=== PATIENT | male | born 1950 | race Caucasian/White ===

== ENCOUNTER 2018-02-26 21:02 | Inpatient (IN) ==
[2018-02-26 21:49] LABS: Bilirubin,Urine Negative (Negative); Blood,Urine Negative (Negative); Clarity,Urine Clear (Clear); Color,Urine Yellow (Yellow); Glucose,Urine (UA) Normal (Normal); Ketones,Urine Negative (Negative); Leukocyte Esterase,Urine Negative (Negative); Nitrite,Urine Negative (Negative); Protein,Urine Negative (Neg-Trace); Specific Gravity,Urine 1.011 (1.010-1.025); Urobilinogen,Urine Normal (Normal)
[2018-02-26 21:57] LABS: Amphetamine Screen,Urine Negative ng/mL (Cutoff=1000); Barbiturate Screen,Urine Negative ng/mL (Cutoff=200); Benzodiazepines Screen,Urine Negative ng/mL (Cutoff=200); Cannabinoid Screen,Urine Negative ng/mL (Cutoff = 50); Cocaine Screen,Urine Negative ng/mL (Cutoff= 300); Opiate Screen,Urine Negative ng/mL (Cutoff=300); Phencyclidine Screen,Urine Negative ng/mL (Cutoff=25)
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
[2018-02-26 22:17] LABS: Basophils % 0.4 %; Eosinophils # 0.2 K/mcL (0.0-0.6); Eosinophils % 2.3 %; Hematocrit 43.2 % (37.5-50.1); Hemoglobin 14.7 g/dL (12.9-16.9); Immature Granulocytes % 0.8 % (0-4); Lymphocytes # 1.8 K/mcL (0.6-4.6); Lymphocytes % 24.5 %; Mean Corpuscular Hemoglobin 29.6 pg (28.0-33.3); Mean Corpuscular Volume 86.9 fL (83.0-100.0); Mean Platelet Volume 10.5 fL (9.4-12.4); Monocytes # 0.6 K/mcL (0.0-1.3); Monocytes % 8.7 %; Neutrophils # 4.7 K/mcL (1.6-8.9); Platelet Count 175 K/mcL (140-400); Red Blood Count 4.97 M/mcL (4.19-5.50); Red Cell Distribution Width 13.5 % (11.5-14.5); Segmented Neutrophils % 63.3 %
[2018-02-26 22:37] LABS: Acetaminophen < 10 mcg/mL (10-20); BUN/Creatinine Ratio 11 (6-26); Blood Urea Nitrogen 10 mg/dL (8-23); Calcium 9.3 mg/dL (8.6-10.3); Carbon Dioxide 21 mEq/L (23-29); Chloride 106 mEq/L (98-107); Ethanol 50 mg/dL (Less than 10); Glucose 88 mg/dL (70-105); Osmolality,Calculated 286 (280-300); Potassium 3.7 mEq/L (3.5-5.1); Salicylate < 2.5 mg/dL (15.0-30.0); Sodium 139 mEq/L (136-145); eGFR For African Americans > 60 (> 60); eGFR For Non-African Americans > 60 (> 60)
[2018-02-27] MEDS ORDERED: Doxycycline 100 MG CAPSULE PO ONE (00:14)
[2018-02-27] MEDS ORDERED: Haloperidol Lactate 5 MG/ML VIAL IM PRN (00:46)
[2018-02-27] MEDS ORDERED: hydrOXYzine pamoate 25 MG CAPSULE PO PRN (00:46)
[2018-02-27] MEDS ORDERED: *HR* LORazepam 2 MG/ML VIAL IM PRN (00:46)
[2018-02-27] MEDS ORDERED: *HR* LORazepam 1 MG TABLET PO PRN (00:46)
[2018-02-27] MEDS ORDERED: Mag Hydrox/Al Hydrox/Simeth 30 ML UDC PO PRN (00:46)
[2018-02-27] MEDS ORDERED: MOM Conc 10 ML UD.LIQ PO PRN (00:46)
[2018-02-27] MEDS ORDERED: Ibuprofen 400 MG TABLET PO PRN (00:46)
[2018-02-27] MEDS: Thiamine (B-1) 100 MG TABLET PO SCH (11:19)
[2018-02-27] MEDS: Folic Acid 1 MG TABLET PO SCH (11:19)
[2018-02-27] MEDS: Vitamin B Complex/Vit C/Vit E 1 EACH TABLET PO SCH (11:19)
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
[2018-02-27 11:22] LABS: Albumin 4.1 g/dL (3.5-5.7); Albumin/Globulin Ratio 1.6 (1.1-2.2); Bilirubin,Direct 0.1 mg/dL (0.0-0.2); Bilirubin,Indirect 0.4 mg/dL (0.0-1.2); Bilirubin,Total 0.5 mg/dL (0.3-1.0); Globulin 2.6 g/dL (2.4-3.5); Total Protein 6.7 g/dL (6.4-8.9)
[2018-02-28] MEDS: Vitamin B Complex/Vit C/Vit E 1 EACH TABLET PO SCH (09:45)
[2018-02-28] MEDS: Thiamine (B-1) 100 MG TABLET PO SCH (09:45)
[2018-02-28] MEDS: Folic Acid 1 MG TABLET PO SCH (09:45)
--- NOTE | 2018-02-28 12:25 | Psychiatry Progress Note ---
Date of Encounter: 02/28/18 Time of Encounter: 10:45 Subjective Interval history: Identifying data: Mr. Mason is a 67 year old male, single, homeless, on SSI, with unclear primary psych diagnosis, h/o alcohol use disorder, h/o of one inpatient hospitalization 11yrs ago, denied h/o illict drug use, denied h/o violence/ incarceration, no significant medical hx who self presented to the ED on accounr of having suicidal thoughts with a plan to cut his wrist in the setting of ongoing stressors identified as the loss of his mom 5moths ago and ongoing family issues. Patient was subsequently transferred to for inpatient stabilization. Interval Hx: There were no reported behavioral issues or incident overnight. Patient was seen this mroning in his room. He reported doing ok and slept better. Patient still endorses Si and when he was asked of any specific plan, he stated "Just give me and knife and I will do it.". Patient proceeded to inquire about his social security check wanting to know if he will receive it whiles still in [facility]. He denied any depressive or anxiety symptoms. He is compliant with hi medications and denied any side effects. On review of symptoms, he denied any mood or psychotic symptoms including AH/VH/SI/HI. Review of Systems Constitutional: Denies: fever, chills, weakness, weight change Eyes: Denies: eye pain, vision change Ears, Nose, Throat: Denies: ear pain, throat pain, dental pain, hearing loss, congestion Cardiovascular: Denies: chest pain, palpitations, dyspnea on exertion Respiratory: Denies: cough, dyspnea, wheezes Gastrointestinal: Denies: abdominal pain, nausea, vomiting, diarrhea, constipation Musculoskeletal: Denies: joint swelling, joint pain Neurological: Denies: headache, weakness, numbness, memory loss Psychiatric: Reports: abnormal sleep pattern, change in appetite Results - Vital Signs Vital Signs: Temp Pulse Resp BP Pulse Ox 98.5 F 70 18 158/107 99 02/27/18 20:03 02/27/18 20:03 02/27/18 20:03 02/27/18 20:03 02/27/18 00:45 Assessment and Plan (1) Adjustment disorder Current visit: Yes Status: Acute (2) Suicidal ideation Current visit: Yes Status: Acute Consult Discharge Plan - Plan Referrals: NONE,PCP [Primary Care Provider] - Psychiatry Exam - Constitutional Vitals: Temp Pulse Resp BP Pulse Ox 98.5 F 70 18 158/107 99 02/27/18 20:03 02/27/18 20:03 02/27/18 20:03 02/27/18 20:03 02/27/18 00:45 General appearance: age & developmentally appropriate, well-groomed, well- nourished - Musculoskeletal Gait: normal Station: relaxed Strength & Tone: normal for patient - Psychiatric Patient Orientation: Yes Person, Yes Time, Yes Place Level of alertness: Alert Behavior: calm, cooperative Psychomotor activity: Normal Eye Contact: Maintains Eye Contact Mood Description: Euthymic/stable Affect description: congruent with mood, full range Speech Volume: Normal Speech pattern: normal rate, normal rhythm, normal tone, fluent, spontaneous Language & Vocabulary: consistent with education Thought Process: Linear, Goal Oriented Thought Content: Yes Suicidal ideation, No Homicidal ideation, No Overt delusions Perceptual Disturbances: No Auditory hallucinations, No Visual hallucinations Attention Span Ability: Capable of Focused Attention Memory Description: Grossly Intact Patient Reliability: Questionable Historian Fund of knowledge: Yes below average Intelligence Estimate: Below Average Judgment: Poor Insight: Minimal
[2018-02-28] MEDS ORDERED: Mirtazapine 15 MG TABLET PO SCH (21:00)
[2018-02-28] MEDS: Doxycycline 100 MG CAPSULE PO SCH (22:39)
[2018-02-28] MEDS: Mirtazapine 15 MG TABLET PO SCH (23:35)
[2018-03-01] MEDS: Vitamin B Complex/Vit C/Vit E 1 EACH TABLET PO SCH (08:35)
[2018-03-01] MEDS: Doxycycline 100 MG CAPSULE PO SCH ×2 (08:35→22:56)
[2018-03-01] MEDS: Thiamine (B-1) 100 MG TABLET PO SCH (08:36)
[2018-03-01] MEDS: Folic Acid 1 MG TABLET PO SCH (08:36)
--- NOTE | 2018-03-01 15:00 | Psychiatry Progress Note ---
Date of Encounter: 03/01/18 Time of Encounter: 14:57 Subjective Interval history: Patient seen for follow-up. Case discussed with nursing staff. Patient is very vague and unable to answer questions or explain why he is in the hospital. He stated "" my mother . Has no place to live. he continued to endorse suicidal ideation with a plan to cut himself was a knife. Tell me that he has been on disability almost all his life in [place]. Speech is mumbled and unclear. Concerned about his housing issue. Unable to provide history information. Review of Systems Psychiatric: Reports: abnormal sleep pattern, suicidal ideation, change in appetite Results - Vital Signs Vital Signs: Temp Pulse Resp BP Pulse Ox 98.1 F 74 14 130/77 99 03/01/18 09:00 03/01/18 09:00 03/01/18 09:00 03/01/18 09:00 02/27/18 00:45 Consult Discharge Plan - Plan Referrals: NONE,PCP [Primary Care Provider] - Psychiatry Exam - Constitutional Vitals: Temp Pulse Resp BP Pulse Ox 98.1 F 74 14 130/77 99 03/01/18 09:00 03/01/18 09:00 03/01/18 09:00 03/01/18 09:00 02/27/18 00:45 General appearance: age & developmentally appropriate, well-nourished, unkempt, bizarre - Musculoskeletal Gait: normal Station: relaxed Strength & Tone: normal for patient - Psychiatric Patient Orientation: Yes Person, Yes Time, Yes Place Level of alertness: Alert Behavior: calm, cooperative, guarded, withdrawn Psychomotor activity: Slowed Eye Contact: Minimal Contact Mood Description: Euthymic/stable Affect description: congruent with mood, constricted, dysphoric Speech Volume: Normal, Whispering Speech pattern: normal rate, normal rhythm, normal tone, fluent, spontaneous, repetetive, impoverished, mumbled Language & Vocabulary: consistent with education Thought Process: Thought Blocking, Perseveration, [place], Slowed Thinking Thought Content: Yes Suicidal ideation, No Homicidal ideation, No Overt delusions Perceptual Disturbances: No Auditory hallucinations, No Visual hallucinations Attention Span Ability: Unable to Focus Memory Description: Immediate Impaired, Recent Impaired, Remote Impaired Patient Reliability: Not Reliable Historian Fund of knowledge: Yes abstraction ability, Yes below average, Yes aware of current events Intelligence Estimate: Average Judgment: Limited Insight: Partial
[2018-03-01] MEDS: Mirtazapine 15 MG TABLET PO SCH (22:55)
[2018-03-02] MEDS: Thiamine (B-1) 100 MG TABLET PO SCH (09:30)
[2018-03-02] MEDS: Vitamin B Complex/Vit C/Vit E 1 EACH TABLET PO SCH (09:30)
[2018-03-02] MEDS: Doxycycline 100 MG CAPSULE PO SCH ×2 (09:30→21:05)
[2018-03-02] MEDS: Folic Acid 1 MG TABLET PO SCH (09:30)
--- NOTE | 2018-03-02 15:19 | Psychiatry Progress Note ---
Date of Encounter: 03/02/18 Time of Encounter: 15:19 Subjective Interval history: Staff report patient continued to make suicidal statements. He is intellectually limited. tankroom worker is trying to find appropriate discharge plan. Otherwise he is medication compliant, seclusive to his room for most of the time. No problem with sleep or appetite. No behavioral agitation. Review of Systems Psychiatric: Reports: abnormal sleep pattern, suicidal ideation, change in appetite Results - Vital Signs Vital Signs: Temp Pulse Resp BP Pulse Ox 98.1 F 77 14 122/86 99 03/02/18 09:00 03/02/18 09:00 03/02/18 09:00 03/02/18 09:00 02/27/18 00:45 Assessment and Plan (1) Suicidal ideation Current visit: Yes Status: Acute Plan: Continue hospitalization, Close observation, Suicide Precautions per unit protocol, Encourage participation in unit milieu, Group Therapy, Monitor sleep, Monitor appetite Risks, benefits, side effects, alternatives discussed w/pt: Yes Patient agreeable to treatment: Yes Consult Discharge Plan - Plan Referrals: NONE,PCP [Primary Care Provider] - Psychiatry Exam - Constitutional Vitals: Temp Pulse Resp BP Pulse Ox 98.1 F 77 14 122/86 99 03/02/18 09:00 03/02/18 09:00 03/02/18 09:00 03/02/18 09:00 02/27/18 00:45 General appearance: age & developmentally appropriate, well-nourished, unkempt, disheveled, bizarre - Musculoskeletal Gait: normal, slow Station: relaxed Strength & Tone: normal for patient - Psychiatric Patient Orientation: Yes Person, Yes Time, Yes Place Level of alertness: Alert Behavior: calm, cooperative Psychomotor activity: Normal Eye Contact: Fleeting Contact Mood Description: Euthymic/stable, Depressed Affect description: congruent with mood, constricted Speech Volume: Normal Speech pattern: normal rate, normal rhythm, normal tone, fluent, spontaneous, disorganized, limited, repetetive Language & Vocabulary: consistent with education Thought Process: Linear, Goal Oriented Thought Content: No Suicidal ideation, No Homicidal ideation, No Overt delusions Perceptual Disturbances: No Auditory hallucinations, No Visual hallucinations Attention Span Ability: Unable to Focus Memory Description: Grossly Intact Patient Reliability: Questionable Historian Fund of knowledge: Yes abstraction ability, Yes aware of current events Intelligence Estimate: Average Judgment: Limited Insight: Partial
[2018-03-02] MEDS: Mirtazapine 15 MG TABLET PO SCH (21:06)
[2018-03-03] MEDS: Doxycycline 100 MG CAPSULE PO SCH ×2 (09:45→21:03)
[2018-03-03] MEDS: Folic Acid 1 MG TABLET PO SCH (09:45)
[2018-03-03] MEDS: Thiamine (B-1) 100 MG TABLET PO SCH (09:45)
[2018-03-03] MEDS: Vitamin B Complex/Vit C/Vit E 1 EACH TABLET PO SCH (09:46)
--- NOTE | 2018-03-03 15:11 | Psychiatry Progress Note ---
Date of Encounter: 03/03/18 Time of Encounter: 15:08 Subjective Interval history: Patient seen for follow-up. Case discussed was treatment team. Staff report patient is spending most his time in his room seclusive and occasionally attend 1 or 2 groups. No report of any behavioral agitation. Denies sleep or appetite problems. Continued to endorse suicidal ideation by cutting himself with a knife. sill worker is trying to work with him to get housing. He has no family in this area. And he is interested and living by himself. Limited conversation due to intellectual level. 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 Affect is flat. Review of Systems Psychiatric: Reports: abnormal sleep pattern, suicidal ideation, change in appetite Results - Vital Signs Vital Signs: Temp Pulse Resp BP Pulse Ox 97.9 F 67 18 136/90 99 03/03/18 08:21 03/03/18 08:21 03/03/18 08:21 03/03/18 08:21 02/27/18 00:45 Assessment and Plan (1) Suicidal ideation Current visit: Yes Status: Acute Plan: Continue hospitalization, Close observation, Suicide Precautions per unit protocol, Encourage participation in unit milieu, Group Therapy, Monitor sleep, Monitor appetite Risks, benefits, side effects, alternatives discussed w/pt: Yes Patient agreeable to treatment: Yes Consult Discharge Plan - Plan Referrals: NONE,PCP [Primary Care Provider] - Psychiatry Exam - Constitutional Vitals: Temp Pulse Resp BP Pulse Ox 97.9 F 67 18 136/90 99 03/03/18 08:21 03/03/18 08:21 03/03/18 08:21 03/03/18 08:21 02/27/18 00:45 General appearance: age & developmentally appropriate, well-groomed, well- nourished - Musculoskeletal Gait: normal, slow Station: relaxed Strength & Tone: normal for patient - Psychiatric Patient Orientation: Yes Person, Yes Time, Yes Place Level of alertness: Alert Behavior: calm, cooperative, guarded Psychomotor activity: Slowed Eye Contact: Maintains Eye Contact Mood Description: Euthymic/stable, Depressed Affect description: congruent with mood, constricted Speech Volume: Normal Speech pattern: normal rate, normal rhythm, normal tone, fluent, spontaneous Language & Vocabulary: consistent with education Thought Process: Linear, Goal Oriented Thought Content: Yes Suicidal ideation, No Homicidal ideation, No Overt delusions Perceptual Disturbances: No Auditory hallucinations, No Visual hallucinations Attention Span Ability: Capable of Focused Attention Memory Description: Grossly Intact Patient Reliability: Reliable Historian Fund of knowledge: Yes abstraction ability, Yes aware of current events Intelligence Estimate: Average Judgment: Limited Insight: Partial
[2018-03-03] MEDS: Mirtazapine 15 MG TABLET PO SCH (21:03)
[2018-03-04] MEDS: Folic Acid 1 MG TABLET PO SCH (08:41)
[2018-03-04] MEDS: Thiamine (B-1) 100 MG TABLET PO SCH (08:41)
[2018-03-04] MEDS: Vitamin B Complex/Vit C/Vit E 1 EACH TABLET PO SCH (08:41)
[2018-03-04] MEDS: Doxycycline 100 MG CAPSULE PO SCH ×2 (08:42→20:21)
[2018-03-04] MEDS ORDERED: Neosporin OINT 15 GM TUBE TP PRN (12:50)
--- NOTE | 2018-03-04 13:51 | Psychiatry Progress Note ---
Date of Encounter: 03/04/18 Time of Encounter: 13:45 Subjective Interval history: patient seen for follow-up. Case discussed with treatment team. sanitation worker indicated that patient may be placed next week. Patient is medication compliant. No behavioral agitation. Limited communication. Makes his needs know Review of Systems Psychiatric: Reports: abnormal sleep pattern, suicidal ideation, change in appetite Results - Vital Signs Vital Signs: Temp Pulse Resp BP Pulse Ox 97.6 F 74 18 146/93 99 03/04/18 09:00 03/04/18 09:00 03/04/18 09:00 03/04/18 09:00 02/27/18 00:45 Assessment and Plan (1) Suicidal ideation Current visit: Yes Status: Acute Plan: Continue hospitalization, Close observation, Suicide Precautions per unit protocol, Encourage participation in unit milieu, Group Therapy, Monitor sleep, Monitor appetite Risks, benefits, side effects, alternatives discussed w/pt: Yes Patient agreeable to treatment: Yes (2) Major depressive disorder, recurrent, unspecified Current visit: Yes Status: Acute Plan: Continue hospitalization, Close observation, Suicide Precautions per unit protocol, Encourage participation in unit milieu, Group Therapy, Monitor sleep, Monitor appetite Risks, benefits, side effects, alternatives discussed w/pt: Yes Patient agreeable to treatment: Yes Qualifiers: Qualified Code(s): F33.9 - Major depressive disorder, recurrent, unspecified Consult Discharge Plan - Plan Referrals: NONE,PCP [Primary Care Provider] - Psychiatry Exam - Constitutional Vitals: Temp Pulse Resp BP Pulse Ox 97.6 F 74 18 146/93 99 03/04/18 09:00 03/04/18 09:00 03/04/18 09:00 03/04/18 09:00 02/27/18 00:45 General appearance: age & developmentally appropriate, well-groomed, well- nourished, bizarre - Musculoskeletal Gait: normal Station: relaxed Strength & Tone: normal for patient - Psychiatric Patient Orientation: Yes Person, Yes Time, Yes Place Level of alertness: Alert Behavior: calm, cooperative Psychomotor activity: Normal Eye Contact: Maintains Eye Contact Mood Description: Euthymic/stable Affect description: congruent with mood, full range Speech Volume: Normal Speech pattern: normal rate, normal rhythm, normal tone, fluent, spontaneous, limited, impoverished Language & Vocabulary: consistent with education Thought Process: Linear, Goal Oriented Thought Content: Yes Suicidal ideation, No Homicidal ideation, No Overt delusions Perceptual Disturbances: No Auditory hallucinations, No Visual hallucinations Attention Span Ability: Capable of Focused Attention Memory Description: Grossly Intact Patient Reliability: Reliable Historian Fund of knowledge: Yes abstraction ability, Yes aware of current events Intelligence Estimate: Average Judgment: Limited Insight: Partial
[2018-03-04] MEDS: Mirtazapine 15 MG TABLET PO SCH (20:21)
[2018-03-04] MEDS: traZODone 50 MG TABLET PO PRN (20:21)
[2018-03-05] MEDS: Thiamine (B-1) 100 MG TABLET PO SCH (10:24)
[2018-03-05] MEDS: Vitamin B Complex/Vit C/Vit E 1 EACH TABLET PO SCH (10:24)
[2018-03-05] MEDS: Folic Acid 1 MG TABLET PO SCH (10:25)
[2018-03-05] MEDS: Doxycycline 100 MG CAPSULE PO SCH ×2 (10:25→20:56)
--- NOTE | 2018-03-05 15:37 | Psychiatry Progress Note ---
Date of Encounter: 03/05/18 Time of Encounter: 15:05 Subjective Interval history: Patient could not be seen because he was sleeping. Staff report she is medication compliant, seclusive to his room most of the time, cooperative with staff. He denies suicidal ideation and forward to possible discharge next week. rigging up worker is planning is placement. No behavioral agitation or lethargy. Awaiting placement. Review of Systems Psychiatric: Reports: abnormal sleep pattern, suicidal ideation, change in appetite Results - Vital Signs Vital Signs: Temp Pulse Resp BP Pulse Ox 97.7 F 16 83 142/93 99 03/05/18 09:00 03/05/18 09:00 03/05/18 09:00 03/05/18 09:00 02/27/18 00:45 Assessment and Plan (1) Suicidal ideation Current visit: Yes Status: Acute Plan: Continue hospitalization, Close observation, Suicide Precautions per unit protocol, Encourage participation in unit milieu, Group Therapy, Monitor sleep, Monitor appetite Risks, benefits, side effects, alternatives discussed w/pt: Yes Patient agreeable to treatment: Yes (2) Major depressive disorder, recurrent, unspecified Current visit: Yes Status: Acute Plan: Continue hospitalization, Close observation, Suicide Precautions per unit protocol, Encourage participation in unit milieu, Group Therapy, Monitor sleep, Monitor appetite Risks, benefits, side effects, alternatives discussed w/pt: Yes Patient agreeable to treatment: Yes Qualifiers: Qualified Code(s): F33.9 - Major depressive disorder, recurrent, unspecified Consult Discharge Plan - Plan Referrals: [place], Mental Health [Other] (You will see Dr. Santo for psychiatric medication management and [facility] for case management services in the senior care on discharge from the hospital.) Lm Becerra MD [Partnered Physician] - (You will see Dr. Becerra for primary care services in the senior care on discharge from the hospital.) Psychiatry Exam - Constitutional Vitals: Temp Pulse Resp BP Pulse Ox 97.7 F 16 83 142/93 99 03/05/18 09:00 03/05/18 09:00 03/05/18 09:00 03/05/18 09:00 02/27/18 00:45 General appearance: age & developmentally appropriate, well-nourished, unkempt - Musculoskeletal Gait: normal Station: relaxed Strength & Tone: normal for patient - Psychiatric Patient Orientation: Yes Person, Yes Time, Yes Place Level of alertness: Alert Behavior: calm, cooperative Psychomotor activity: Normal Eye Contact: Maintains Eye Contact Mood Description: Euthymic/stable Affect description: congruent with mood, full range Speech Volume: Normal Speech pattern: normal rate, normal rhythm, normal tone, fluent, spontaneous, limited, impoverished Language & Vocabulary: consistent with education Thought Process: Linear, Goal Oriented, [place] Thought Content: No Suicidal ideation, No Homicidal ideation, No Overt delusions Perceptual Disturbances: No Auditory hallucinations, No Visual hallucinations Attention Span Ability: Capable of Focused Attention Memory Description: Grossly Intact Patient Reliability: Reliable Historian Fund of knowledge: Yes abstraction ability, Yes aware of current events Intelligence Estimate: Average Judgment: Limited Insight: Partial
[2018-03-05] MEDS: Mirtazapine 15 MG TABLET PO SCH (20:56)
[2018-03-05] MEDS: traZODone 50 MG TABLET PO PRN (20:57)
[2018-03-06] MEDS: Doxycycline 100 MG CAPSULE PO SCH ×2 (10:04→21:56)
[2018-03-06] MEDS: Thiamine (B-1) 100 MG TABLET PO SCH (10:05)
[2018-03-06] MEDS: Folic Acid 1 MG TABLET PO SCH (10:05)
[2018-03-06] MEDS: Vitamin B Complex/Vit C/Vit E 1 EACH TABLET PO SCH (10:05)
--- NOTE | 2018-03-06 13:53 | Psychiatry Progress Note ---
Date of Encounter: 03/06/18 Time of Encounter: 13:50 Subjective Interval history: Patient seen for follow-up. Case discussed with nursing staff. Patient is doing well, denies any problem with sleep or appetite, denies suicidal ideation , he participated in groups and activities. She cooperative and compliant with medication. Awaiting placement next week. Review of Systems Psychiatric: Reports: abnormal sleep pattern, suicidal ideation, change in appetite Results - Vital Signs Vital Signs: Temp Pulse Resp BP Pulse Ox 97.6 F 74 14 138/91 99 03/06/18 09:00 03/06/18 09:00 03/06/18 09:00 03/06/18 09:00 02/27/18 00:45 Assessment and Plan (1) Suicidal ideation Current visit: Yes Status: Acute Plan: Continue hospitalization, Close observation, Suicide Precautions per unit protocol, Encourage participation in unit milieu, Group Therapy, Monitor sleep, Monitor appetite Risks, benefits, side effects, alternatives discussed w/pt: Yes Patient agreeable to treatment: Yes (2) Major depressive disorder, recurrent, unspecified Current visit: Yes Status: Acute Plan: Continue hospitalization, Close observation, Suicide Precautions per unit protocol, Encourage participation in unit milieu, Group Therapy, Monitor sleep, Monitor appetite Risks, benefits, side effects, alternatives discussed w/pt: Yes Patient agreeable to treatment: Yes Qualifiers: Qualified Code(s): F33.9 - Major depressive disorder, recurrent, unspecified Consult Discharge Plan - Plan Referrals: [place], Mental Health [Other] (You will see Dr. Santo for psychiatric medication management and [facility] for case management services in the [facility] on discharge from the hospital.) Lm Becerra MD [Partnered Physician] - (You will see Dr. Becerra for primary care services in the snf on discharge from the hospital.) Psychiatry Exam - Constitutional Vitals: Temp Pulse Resp BP Pulse Ox 97.6 F 74 14 138/91 99 03/06/18 09:00 03/06/18 09:00 03/06/18 09:00 03/06/18 09:00 02/27/18 00:45 General appearance: age & developmentally appropriate, well-groomed, well- nourished - Musculoskeletal Gait: normal Station: relaxed Strength & Tone: normal for patient - Psychiatric Patient Orientation: Yes Person, Yes Time, Yes Place Level of alertness: Alert Behavior: calm, cooperative Psychomotor activity: Normal Eye Contact: Maintains Eye Contact Mood Description: Euthymic/stable Affect description: congruent with mood, full range Speech Volume: Normal Speech pattern: normal rate, normal rhythm, normal tone, fluent, spontaneous, limited, impoverished Language & Vocabulary: consistent with education Thought Process: Linear, Goal Oriented Thought Content: No Suicidal ideation, No Homicidal ideation, No Overt delusions Perceptual Disturbances: No Auditory hallucinations, No Visual hallucinations Attention Span Ability: Capable of Focused Attention Memory Description: Grossly Intact Patient Reliability: Reliable Historian Fund of knowledge: Yes abstraction ability, Yes aware of current events Intelligence Estimate: Average Judgment: Limited Insight: Partial
[2018-03-06] MEDS: Mirtazapine 15 MG TABLET PO SCH (21:55)
[2018-03-06] MEDS: traZODone 50 MG TABLET PO PRN (21:56)
[2018-03-07] MEDS: Folic Acid 1 MG TABLET PO SCH (09:21)
[2018-03-07] MEDS: Doxycycline 100 MG CAPSULE PO SCH ×2 (09:21→20:57)
[2018-03-07] MEDS: Thiamine (B-1) 100 MG TABLET PO SCH (09:22)
[2018-03-07] MEDS: Vitamin B Complex/Vit C/Vit E 1 EACH TABLET PO SCH (09:22)
--- NOTE | 2018-03-07 13:42 | Psychiatry Progress Note ---
Date of Encounter: 03/07/18 Time of Encounter: 11:40 Subjective Interval history: Patient seen for follow-up. Case discussed with nursing staff. Staff report patient is pleasant and cooperative, compliant with medication and participate in some activities. Seen in the dining room dressed and groomed appropriately, pleasant and friendly limited conversation, denied any suicidal ideation. He is awaiting placement. Review of Systems Psychiatric: Reports: abnormal sleep pattern, suicidal ideation, change in appetite Results - Vital Signs Vital Signs: Temp Pulse Resp BP Pulse Ox 98.2 F 81 16 122/82 99 03/07/18 09:00 03/07/18 09:00 03/07/18 09:00 03/07/18 09:00 02/27/18 00:45 Assessment and Plan (1) Suicidal ideation Current visit: Yes Status: Acute Plan: Continue hospitalization, Close observation, Suicide Precautions per unit protocol, Encourage participation in unit milieu, Group Therapy, Monitor sleep, Monitor appetite Risks, benefits, side effects, alternatives discussed w/pt: Yes Patient agreeable to treatment: Yes (2) Major depressive disorder, recurrent, unspecified Current visit: Yes Status: Acute Plan: Continue hospitalization, Close observation, Suicide Precautions per unit protocol, Encourage participation in unit milieu, Group Therapy, Monitor sleep, Monitor appetite Risks, benefits, side effects, alternatives discussed w/pt: Yes Patient agreeable to treatment: Yes Qualifiers: Qualified Code(s): F33.9 - Major depressive disorder, recurrent, unspecified Consult Discharge Plan - Plan Referrals: [place], Mental Health [Other] (You will see Dr. Santo for psychiatric medication management and [facility] for case management services in the [facility] on discharge from the hospital.) Lm Becerra MD [Partnered Physician] - (You will see Dr. Becerra for primary care services in the [facility] on discharge from the hospital.) Psychiatry Exam - Constitutional Vitals: Temp Pulse Resp BP Pulse Ox 98.2 F 81 16 122/82 99 03/07/18 09:00 03/07/18 09:00 03/07/18 09:00 03/07/18 09:00 02/27/18 00:45 General appearance: age & developmentally appropriate, well-groomed, well- nourished, bizarre - Musculoskeletal Gait: normal Station: relaxed Strength & Tone: normal for patient - Psychiatric Patient Orientation: Yes Person, Yes Time, Yes Place Level of alertness: Alert Behavior: calm, cooperative Psychomotor activity: Normal Eye Contact: Maintains Eye Contact Mood Description: Euthymic/stable Affect description: congruent with mood, full range Speech Volume: Normal Speech pattern: normal rate, normal rhythm, normal tone, fluent, spontaneous Language & Vocabulary: consistent with education Thought Process: Linear, Goal Oriented Thought Content: No Suicidal ideation, No Homicidal ideation, No Overt delusions Perceptual Disturbances: No Auditory hallucinations, No Visual hallucinations Attention Span Ability: Capable of Focused Attention Memory Description: Grossly Intact Patient Reliability: Not Reliable Historian Fund of knowledge: Yes abstraction ability, Yes aware of current events Intelligence Estimate: Average Judgment: Limited Insight: Partial
[2018-03-07] MEDS: Mirtazapine 15 MG TABLET PO SCH (20:57)
[2018-03-07] MEDS: traZODone 50 MG TABLET PO PRN (20:57)
[2018-03-08] MEDS: Thiamine (B-1) 100 MG TABLET PO SCH (08:46)
[2018-03-08] MEDS: Folic Acid 1 MG TABLET PO SCH (08:46)
[2018-03-08] MEDS: Doxycycline 100 MG CAPSULE PO SCH (08:46)
[2018-03-08] MEDS: Vitamin B Complex/Vit C/Vit E 1 EACH TABLET PO SCH (08:46)
[2018-03-08 09:25] LABS: QuantiFERON Mitogen minus NIL >10.00 IU/mL
[2018-03-08 09:48] VITALS: BP 144/90
[2018-03-08 10:14] LABS: QuantiFERON NIL 0.03 IU/mL; QuantiFERON-TB Gold In-Tube NEGATIVE (Negative)
--- NOTE | 2018-03-08 10:46 | Discharge Summary ---
Date of Encounter: 03/08/18 Time of Encounter: 10:40 Diagnosis - Discharge Diagnosis (1) Depression Status: Acute Qualifiers: Depression Type: unspecified Qualified Code(s): F32.9 - Major depressive disorder, single episode, unspecified Medications - Discharge Medications Prescriptions: Doxycycline 100 mg PO BID 5 Days #10 capsule Folic Acid 1 mg PO DAILY 30 Days #30 tablet hydrOXYzine pamoate [HydrOXYzine Pamoate] 25 mg PO TID PRN 30 Days #30 capsule PRN Reason: Anxiety Mirtazapine [Remeron] 7.5 mg PO HS 30 Days #30 tablet Thiamine (B-1) [Vitamin B-1] 100 mg PO DAILY 30 Days #30 tablet Vitamin B Complex/Vit C/Vit E [Stresstab] 1 each PO DAILY 30 Days #30 tablet Aspirin Enteric Coated [Aspirin EC] 81 mg PO DAILY 04/29/16 [History] Febuxostat [Uloric] 80 mg PO DAILY 04/29/16 [History] Lisinopril [Zestril] 20 mg PO DAILY 02/27/18 [History] Doxycycline 100 mg PO BID 5 Days #10 capsule 03/08/18 [Rx] Folic Acid 1 mg PO DAILY 30 Days #30 tablet 03/08/18 [Rx] Mirtazapine [Remeron] 7.5 mg PO HS 30 Days #30 tablet 03/08/18 [Rx] Thiamine (B-1) [Vitamin B-1] 100 mg PO DAILY 30 Days #30 tablet 03/08/18 [Rx] Vitamin B Complex/Vit C/Vit E [Stresstab] 1 each PO DAILY 30 Days #30 tablet 01/20 [Rx] hydrOXYzine pamoate [HydrOXYzine Pamoate] 25 mg PO TID PRN 30 Days #30 capsule 03/08/18 [Rx] 3 Allergy/AdvReac Type Severity Reaction Status Date / Time Penicillins [PCN] Allergy Hives Verified 02/27/18 09:05 Results Procedures and tests throughout hospitalization: Completed Lab Orders Category Date Time Status Hepatic Panel Stat Lab 02/27/18 10:42 Completed QuantiFERON-TB Gold In-Tube Routine Lab 03/04/18 14:14 Completed Provider Date of admission: 02/27/18 00:38 Primary care physician: PCP NONE Psychiatry Exam - Constitutional Vitals: Temp Pulse Resp BP Pulse Ox 98.4 F 69 17 144/90 99 03/08/18 09:00 03/08/18 09:00 03/08/18 09:00 03/08/18 09:00 02/27/18 00:45 General appearance: age & developmentally appropriate - Musculoskeletal Gait: normal Station: other Strength & Tone: normal for patient - Psychiatric Patient Orientation: Yes Person, Yes Time, Yes Place, Yes Circumstance Level of alertness: Alert Behavior: calm Psychomotor activity: Normal Eye Contact: Diverts Contact Mood Description: Depressed (mild) Affect description: congruent with mood Speech Volume: Normal Speech pattern: normal rate, normal rhythm, normal tone Language & Vocabulary: consistent with education Thought Process: Intact Thought Content: Yes Intact Attention Span Ability: Capable of Focused Attention Memory Description: Grossly Intact Patient Reliability: Reliable Historian Fund of knowledge: Yes abstraction ability Intelligence Estimate: Average Judgment: Fair Insight: Partial Hospital Course Hospital course: Mr. Mason is a 67 year old male who was hospitalized for depression and having thoughts of wanting to hurt himself. He had been drinking alcohol again and was frustrated with his current living situation. He was feeling depressed at the thought of having to go back to the living environment that he came from. He was placed on folic acid and thiamine targeting his alcohol use. He was placed on Remeron for his depression and problems sleeping. He attended groups and utilized individual therapy. He worked with the professor of social work to find alternative housing for his discharge. He states he slowly started feeling better and was not feeling as depressed. He was feeling like he had more energy and was not as sad as he had been nor as hopeless. His sleep improved and had no issue with alcohol withdraw. He does know about 12 step program for outpatient cessation. He was working with the professor of social work and outpatient housing was located for his discharge, so he did not have to go back to living at the residence he was at before. He was happy, future oriented. He denied any adverse side effects of his medications. He stated he would stay on them and keep his outpatient follow up appointments that had been arranged for him. He denied SI/HI and his mood was stable. He was taking an antibiotic for a dog bite he sustained on his hand was knew he needed to conitnue taking it for another week yet. Time spent discussing smoking cessation with patient: 3 to 10 minutes Does patient wish to continue nicotine replacement upon disc: No (Patient no longer smokes) - Time Spent with Patient Total time spent providing and/or coordinating discharge services: 15 min Less than 30 minutes Assessment and Plan - Patient/Caregiver Discharge Instructions Activity: resume usual activities as tolerated Diet: regular diet - Follow up Plan Follow up with: [place], Mental [facility] [Other] (You will see Dr. Santo for psychiatric medication management and [facility] for case management services in the longterm on discharge from the hospital.) Lm Becerra MD [Partnered Physician] - (You will see Dr. Becerra for primary care services in the longterm on discharge from the hospital.) Functional capacity at discharge: independent ambulation Overall status at discharge: Stable Disposition: Transfer Other Quality - Multiple Antipsychotics Patient discharged on 2 or more antipsychotic medications: No Procedures - Procedures Procedures: Medication Management, Crisis Stabilization, Supportive Therapy
== END 2018-03-08 12:50 | disposition other institution (70) | DRG 881 ==
LOC: EMEROO 21:02 → 1ANU 02-27 00:38 → SUATTDRO 02-27 00:38 → 1ANU 02-27 01:15
PROVIDERS: ADMIT Psychiatry & Neurology Forensic Psychiatry; ATTEND Psychiatry & Neurology Psychiatry

== ENCOUNTER 2018-09-09 21:23 | Inpatient (IN) ==
--- NOTE | 2018-09-09 21:39 | Emergency Department Note ---
Disposition Clinical Impression: Suicidal ideation, Intoxication Disposition: Still a Patient Condition: Good Referrals: NONE,PCP [Primary Care Provider] - Forms: ED Satisfaction Letter Time of Disposition: 07:00 Psych HPI - General Chief Complaint: ED Psychiatric Symptoms Stated Complaint: si/etoh Time Seen by Provider: 09/09/18 21:32 Source: patient, EMS Mode of arrival: EMS Limitations: no limitations Nursing Notes Reviewed: Yes Vital Signs Reviewed: Yes - History of Present Illness HPI Narrative: Patient is a 67-year-old male with past medical history of depression, alcohol abuse. He presents today via EMS from a longterm due to concern for intoxication and suicidal ideation. Patient states that he drank a full bottle of Kei Cobra prior to presentation. He says that he wants to kill himself by using a knife to stab or cut himself. Denies any actual self-harm or congestion prior to arrival. Denies any other chest pain, shortness breath, nausea, vomiting, diarrhea, abdominal pain. Patient is clinically intoxicated on exam so review of systems is limited. Unknown if patient has had previous admissions for behavioral health reasons. Patient denies daily alcohol use, states that he only drinks alcohol occasionally because "he cannot afford to drink every day." - Related Data Home Medications Medication Instructions Recorded Confirmed Aspirin Enteric Coated [Aspirin EC] 81 mg PO DAILY 04/29/16 02/27/18 Febuxostat [Uloric] 80 mg PO DAILY 04/29/16 02/27/18 Lisinopril [Zestril] 20 mg PO DAILY 02/27/18 02/27/18 Previous Rx's Medication Instructions Recorded Doxycycline 100 mg PO BID 5 Days #10 capsule 03/08/18 Folic Acid 1 mg PO DAILY 30 Days #30 tablet 03/08/18 Mirtazapine [Remeron] 7.5 mg PO HS 30 Days #30 tablet 03/08/18 Thiamine (B-1) [Vitamin B-1] 100 mg PO DAILY 30 Days #30 tablet 03/08/18 Vitamin B Complex/Vit C/Vit E 1 each PO DAILY 30 Days #30 tablet 03/08/18 [Stresstab] hydrOXYzine pamoate [HydrOXYzine 25 mg PO TID PRN 30 Days #30 03/08/18 Pamoate] capsule Allergies Allergy/AdvReac Type Severity Reaction Status Date / Time Penicillins [PCN] Allergy Hives Verified 05/10/18 11:57 All systems ED: reviewed and negative except as stated. Constitutional: Denies: fever Cardiovascular: Denies: chest pain Respiratory: Denies: dyspnea Gastrointestinal: Reports: vomiting. Denies: abdominal pain, nausea, diarrhea Neurological: Denies: headache, weakness, numbness, paresthesias Psychiatric: Reports: depression, suicidal thoughts. Denies: homicidal thoughts, auditory hallucinations, visual hallucinations Past Medical History - Past Medical History Attestation: Yes The following information was validated with the patient. Source: patient Medical history: Reports: hepatitis, hyperlipidemia, hypertension Surgical history: Reports: appendectomy Psychiatric history: Reports: previous psychiatric hospitalization - Social History Smoking Status: Current every day smoker Alcohol use: Reports: occasionally Drug use: Reports: none Physical Exam - General Limitations: other (intoxicated) - Head Head exam: other (left periorbital echymosis ) - Eye Eye exam: Present: PERRL, EOMI - ENT ENT exam: normal exam, normal oropharynx, mucous membranes moist - Neck Neck exam: Present: normal inspection, full ROM, trachea midline. Absent: tenderness - Chest Chest inspection: Present: normal inspection, symmetric chest wall rise - Respiratory Respiratory exam: Present: normal lung sounds bilaterally - Cardiovascular Cardiovascular exam: Present: regular rate, normal rhythm, normal heart sounds - Abdominal Exam Abdominal exam: Present: soft, Non-Tender. Absent: tenderness, distention, guarding, rebound, rigidity, Rhoades's sign, Rovsing's sign, tenderness at McBurney's Point - Extremities Exam Extremities exam: Present: full ROM. Absent: tenderness, pedal edema - Neurological Exam Neurological exam: Present: alert, CN II-XII intact. Absent: motor sensory deficit - Expanded Neurological Exam Patient oriented to: Present: person. Absent: place, time Cranial nerves: EOM function (II, III, IV, ): Normal, facial sensation (V): Normal, facial palsy (VII): Normal, spinal accessory function (XI): Normal, tongue deviation (XII): Normal Motor strength - LUE: 5/5 Motor strength - RUE: 5/5 Motor strength - LLE: 5/5 Motor strength - RLE: 5/5 Sensory exam upper extremity: light touch: Normal Sensory exam lower extremity: light touch: Normal Coma Scale Eye Opening: Spontaneous Coma Scale Motor Response: Obeys Commands Coma Scale Verbal Response: Confused Coma Scale Total: 14 - Psychiatric Psychiatric exam: Present: normal affect, normal mood - Skin Skin exam: Present: warm, dry, intact Course Course Narrative: Patient clinically intoxicated. He has some ecchymosis of the left periorbital region. Otherwise, no other signs of raccoon eyes, cheek sign, no neck tenderness. Lungs were clear to auscultation, abdomen soft and nontender. No obvious injury to extremities. [place] slip has been signed and placed on chart due to suicidal ideation with a plan. We will obtain medical clearance labs and will also obtain CT the head and cervical spine. 22:[address] no [address] head and cervical spine negative for any acute abnormality. Alcohol level 336. We will have to wait until alcohol level is less than 80 before behavioral health evaluation. Vital Signs Temperature 97.6 F 09/09/18 21:31 Pulse Rate 75 09/09/18 21:31 Respiratory Rate 18 09/09/18 21:31 Blood Pressure 127/92 09/09/18 21:31 O2 Sat by Pulse Oximetry 98 09/09/18 21:31 Temperature 97.6 F 09/09/18 21:31 Pulse Rate 75 09/09/18 21:31 Respiratory Rate 18 09/09/18 21:31 Blood Pressure 127/92 09/09/18 21:31 O2 Sat by Pulse Oximetry 98 09/09/18 21:31 Oxygen Delivery Oxygen Delivery Room Air Psych - MDM Narrative Medical decision making narrative: Patient clinically intoxicated. He has some ecchymosis of the left periorbital region. Otherwise, no other signs of raccoon eyes, cheek sign, no neck tenderness. Lungs were clear to auscultation, abdomen soft and nontender. No obvious injury to extremities. [place] slip has been signed and placed on chart due to suicidal ideation with a plan. We will obtain medical clearance labs and will also obtain CT the head and cervical spine. 22:[address] head and cervical spine negative for any acute abnormality. Alcohol level 336. We will have to wait until alcohol level is less than 80 before behavioral health evaluation. Next ethanol scheduled for 08:00 on 09/10/18. Calculated out and alcohol level will be down to 80 between 8a-10a on 09/10. Will sign out to day team for further care and dispo. - Lab Data Result diagrams: 09/09/18 21:50 09/09/18 21:50 Lab Results 09/09/18 09/09/18 09/10/18 Range/Units 21:50 21:50 04:39 WBC 8.7 (4.3-11.1) K/mcL RBC 5.39 (4.19-5.50) M/mcL Hgb 15.6 (12.9-16.9) g/dL Hct 46.8 (37.5-50.1) % MCV 86.8 (83.0-100.0) fL MCH 28.9 (28.0-33.3) pg MCHC 33.3 (31.6-35.5) g/dL RDW 12.9 (11.5-14.5) % Plt Count 139 L (140-400) K/mcL MPV 10.1 (9.4-12.4) fL Immature Gran % 1.2 (0-4) % Seg Neutrophils % 75.2 % Lymphocytes % 17.8 % Monocytes % 4.6 % Eosinophils % 0.7 % Basophils % 0.5 % Neutrophils # 6.5 (1.6-8.9) K/mcL Lymphocytes # 1.6 (0.6-4.6) K/mcL Monocytes # 0.4 (0.0-1.3) K/mcL Eosinophils # 0.1 (0.0-0.6) K/mcL Basophils # 0.0 (0.0-0.2) K/mcL Sodium 137 (136-145) mEq/L Potassium 3.2 L (3.5-5.1) mEq/L Chloride 104 (98-107) mEq/L Carbon Dioxide 19 L (23-29) mEq/L BUN 5 L (8-23) mg/dL Creatinine 0.83 (0.70-1.30) mg/dL Est GFR ( Amer) > 60 (> 60) Est GFR (Non-Af Amer) > 60 (> 60) BUN/Creatinine Ratio 6 (6-26) Glucose 138 H (70-105) mg/dL Calculated Osmolality 283 (280-300) Calcium 9.0 (8.6-10.3) mg/dL Urine Color Yellow (Yellow) Urine Clarity Clear (Clear) Urine pH 5.5 (5.0-8.0) pH Units Ur Specific [place] 1.014 (1.010-1.025) Urine Protein Negative (Neg-Trace) mg/dL Urine Glucose (UA) Normal (Normal) mg/dL Urine Ketones Negative (Negative) mg/dL Urine Blood Negative (Negative) Urine Nitrite Negative (Negative) Urine Bilirubin Negative (Negative) Urine Urobilinogen Normal (Normal) mg/dL Ur Leukocyte Esterase Negative (Negative) Salicylates < 2.5 L (15.0-30.0) mg/dL Urine Opiates Screen (Nruedl=236) ng/mL Acetaminophen < 10 L (10-20) mcg/mL Ur Barbiturates Screen (Iaqycj=358) ng/mL Ur Phencyclidine Scrn (Cutoff=25) ng/mL Ur Amphetamines Screen (Vrrgbs=1543) ng/mL U Benzodiazepines Scrn (Ikaodn=088) ng/mL Urine Cocaine Screen (Cutoff= 300) ng/mL U Marijuana (THC) Screen (Cutoff = 50) ng/mL Ur Drug Screen Interp Ethyl Alcohol 336 H (Less than 10) mg/dL 09/10/18 Range/Units 04:39 WBC (4.3-11.1) K/mcL RBC (4.19-5.50) M/mcL Hgb (12.9-16.9) g/dL Hct (37.5-50.1) % MCV (83.0-100.0) fL MCH (28.0-33.3) pg MCHC (31.6-35.5) g/dL RDW (11.5-14.5) % Plt Count (140-400) K/mcL MPV (9.4-12.4) fL Immature Gran % (0-4) % Seg Neutrophils % % Lymphocytes % % Monocytes % % Eosinophils % % Basophils % % Neutrophils # (1.6-8.9) K/mcL Lymphocytes # (0.6-4.6) K/mcL Monocytes # (0.0-1.3) K/mcL Eosinophils # (0.0-0.6) K/mcL Basophils # (0.0-0.2) K/mcL Sodium (136-145) mEq/L Potassium (3.5-5.1) mEq/L Chloride (98-107) mEq/L Carbon Dioxide (23-29) mEq/L BUN (8-23) mg/dL Creatinine (0.70-1.30) mg/dL Est GFR ( Amer) (> 60) Est GFR (Non-Af Amer) (> 60) BUN/Creatinine Ratio (6-26) Glucose (70-105) mg/dL Calculated Osmolality (280-300) Calcium (8.6-10.3) mg/dL Urine Color (Yellow) Urine Clarity (Clear) Urine pH (5.0-8.0) pH Units Ur Specific [place] (1.010-1.025) Urine Protein (Neg-Trace) mg/dL Urine Glucose (UA) (Normal) mg/dL Urine Ketones (Negative) mg/dL Urine Blood (Negative) Urine Nitrite (Negative) Urine Bilirubin (Negative) Urine Urobilinogen (Normal) mg/dL Ur Leukocyte Esterase (Negative) Salicylates (15.0-30.0) mg/dL Urine Opiates Screen Negative (Viewvi=288) ng/mL Acetaminophen (10-20) mcg/mL Ur Barbiturates Screen Negative (Jhcnvq=482) ng/mL Ur Phencyclidine Scrn Negative (Cutoff=25) ng/mL Ur Amphetamines Screen Negative (Akggbe=1613) ng/mL U Benzodiazepines Scrn Negative (Thnjni=929) ng/mL Urine Cocaine Screen Negative (Cutoff= 300) ng/mL U Marijuana (THC) Screen Negative (Cutoff = 50) ng/mL Ur Drug Screen Interp See Below Ethyl Alcohol (Less than 10) mg/dL Psychiatric Medical Clearance - Medical Clearance Checklist Medical History: No Social History Section defined Current Vitals: Last Vital Signs Temp 97.6 F 09/09/18 21:31 Pulse 75 09/09/18 21:31 Resp 18 09/09/18 21:31 BP 127/92 09/09/18 21:31 Pulse Ox 98 09/09/18 21:31 Psychiatric Lab Panel: Drug Levels and Toxicity 09/09/18 09/10/18 21:50 04:39 Urine Opiates Screen Negative Acetaminophen < 10 L Ur Barbiturates Screen Negative Ur Phencyclidine Scrn Negative Ur Amphetamines Screen Negative U Benzodiazepines Scrn Negative Urine Cocaine Screen Negative U Marijuana (THC) Screen Negative Ethyl Alcohol 336 H Abnormal Labs: Abnormal lab results Plt Count 139 K/mcL (140-400) L 09/09/18 21:50 Potassium 3.2 mEq/L (3.5-5.1) L 09/09/18 21:50 Carbon Dioxide 19 mEq/L (23-29) L 09/09/18 21:50 BUN 5 mg/dL (8-23) L 09/09/18 21:50 Glucose 138 mg/dL (70-105) H 09/09/18 21:50 Salicylates < 2.5 mg/dL (15.0-30.0) L 09/09/18 21:50 Acetaminophen < 10 mcg/mL (10-20) L 09/09/18 21:50 Ethyl Alcohol 336 mg/dL (Less than 10) H 09/09/18 21:50 Statement of Medical Clearance: I have evaluated the patient, reviewed diagnostic information, and certify that the patient's medical condition is sufficiently stable that transfer to the psychiatric unit does not pose a significant risk of deterioration.
[2018-09-09 22:02] LABS: Basophils % 0.5 %; Eosinophils # 0.1 K/mcL (0.0-0.6); Eosinophils % 0.7 %; Hematocrit 46.8 % (37.5-50.1); Hemoglobin 15.6 g/dL (12.9-16.9); Immature Granulocytes % 1.2 % (0-4); Lymphocytes # 1.6 K/mcL (0.6-4.6); Lymphocytes % 17.8 %; Mean Corpuscular HGB Conc 33.3 g/dL (31.6-35.5); Mean Corpuscular Hemoglobin 28.9 pg (28.0-33.3); Mean Corpuscular Volume 86.8 fL (83.0-100.0); Mean Platelet Volume 10.1 fL (9.4-12.4); Monocytes # 0.4 K/mcL (0.0-1.3); Monocytes % 4.6 %; Neutrophils # 6.5 K/mcL (1.6-8.9); Platelet Count 139 K/mcL (140-400); Red Blood Count 5.39 M/mcL (4.19-5.50); Red Cell Distribution Width 12.9 % (11.5-14.5); Segmented Neutrophils % 75.2 %
[2018-09-09 22:22] LABS: Acetaminophen < 10 mcg/mL (10-20); BUN/Creatinine Ratio 6 (6-26); Blood Urea Nitrogen 5 mg/dL (8-23); Carbon Dioxide 19 mEq/L (23-29); Chloride 104 mEq/L (98-107); Ethanol 336 mg/dL (Less than 10); Glucose 138 mg/dL (70-105); Osmolality,Calculated 283 (280-300); Potassium 3.2 mEq/L (3.5-5.1); Salicylate < 2.5 mg/dL (15.0-30.0); Sodium 137 mEq/L (136-145); eGFR For Non-African Americans > 60 (> 60)
--- NOTE | 2018-09-09 23:09 | Emergency Department Note ---
Disposition Clinical Impression: Suicidal ideation, Intoxication Disposition: Still a Patient Condition: Good Referrals: NONE,PCP [Primary Care Provider] - Forms: ED Satisfaction Letter General Adult HPI - General Chief complaint: ED Psychiatric Symptoms Stated complaint: si/etoh Time Seen by Provider: 09/09/18 21:32 Source: patient, EMS Mode of arrival: EMS Limitations: other (intoxicated) Nursing Notes Reviewed: Yes Vital Signs Reviewed: Yes - History of Present Illness Pain Scale: 0 - Related Data Home Medications Medication Instructions Recorded Confirmed Aspirin Enteric Coated [Aspirin EC] 81 mg PO DAILY 04/29/16 02/27/18 Febuxostat [Uloric] 80 mg PO DAILY 04/29/16 02/27/18 Lisinopril [Zestril] 20 mg PO DAILY 02/27/18 02/27/18 Previous Rx's Medication Instructions Recorded Doxycycline 100 mg PO BID 5 Days #10 capsule 03/08/18 Folic Acid 1 mg PO DAILY 30 Days #30 tablet 03/08/18 Mirtazapine [Remeron] 7.5 mg PO HS 30 Days #30 tablet 03/08/18 Thiamine (B-1) [Vitamin B-1] 100 mg PO DAILY 30 Days #30 tablet 03/08/18 Vitamin B Complex/Vit C/Vit E 1 each PO DAILY 30 Days #30 tablet 03/08/18 [Stresstab] hydrOXYzine pamoate [HydrOXYzine 25 mg PO TID PRN 30 Days #30 03/08/18 Pamoate] capsule Allergies Allergy/AdvReac Type Severity Reaction Status Date / Time Penicillins [PCN] Allergy Hives Verified 05/10/18 11:57 Constitutional: Denies: fever Cardiovascular: Denies: chest pain Respiratory: Denies: dyspnea Gastrointestinal: Reports: vomiting. Denies: abdominal pain, nausea, diarrhea Neurological: Denies: headache, weakness, numbness, paresthesias Psychiatric: Reports: depression, suicidal thoughts. Denies: homicidal thoughts, auditory hallucinations, visual hallucinations Past Medical History - Past Medical History Medical history: Reports: hepatitis, hyperlipidemia, hypertension Surgical history: Reports: appendectomy Psychiatric history: Reports: previous psychiatric hospitalization - Social History Smoking Status: Current every day smoker Alcohol use: Reports: occasionally Drug use: Reports: none Physical Exam - General Limitations: other (intoxicated) General appearance: alert, appears intoxicated Course Vital Signs Temperature 97.6 F 09/09/18 21:31 Pulse Rate 75 09/09/18 21:31 Respiratory Rate 18 09/09/18 21:31 Blood Pressure 127/92 09/09/18 21:31 O2 Sat by Pulse Oximetry 98 09/09/18 21:31 Temperature 98.8 F 09/10/18 06:56 Pulse Rate 78 09/10/18 06:56 Respiratory Rate 19 09/10/18 06:56 Blood Pressure 97/65 09/10/18 06:56 O2 Sat by Pulse Oximetry 94 09/10/18 06:56 Oxygen Delivery Oxygen Delivery Room Air Medical Decision Making - Lab Data Lab results reviewed: Yes I reviewed the patient's lab results. Result diagrams: 09/09/18 21:50 09/09/18 21:50 Lab Results 09/09/18 09/09/18 09/10/18 Range/Units 21:50 21:50 04:39 WBC 8.7 (4.3-11.1) K/mcL RBC 5.39 (4.19-5.50) M/mcL Hgb 15.6 (12.9-16.9) g/dL Hct 46.8 (37.5-50.1) % MCV 86.8 (83.0-100.0) fL MCH 28.9 (28.0-33.3) pg MCHC 33.3 (31.6-35.5) g/dL RDW 12.9 (11.5-14.5) % Plt Count 139 L (140-400) K/mcL MPV 10.1 (9.4-12.4) fL Immature Gran % 1.2 (0-4) % Seg Neutrophils % 75.2 % Lymphocytes % 17.8 % Monocytes % 4.6 % Eosinophils % 0.7 % Basophils % 0.5 % Neutrophils # 6.5 (1.6-8.9) K/mcL Lymphocytes # 1.6 (0.6-4.6) K/mcL Monocytes # 0.4 (0.0-1.3) K/mcL Eosinophils # 0.1 (0.0-0.6) K/mcL Basophils # 0.0 (0.0-0.2) K/mcL Sodium 137 (136-145) mEq/L Potassium 3.2 L (3.5-5.1) mEq/L Chloride 104 (98-107) mEq/L Carbon Dioxide 19 L (23-29) mEq/L BUN 5 L (8-23) mg/dL Creatinine 0.83 (0.70-1.30) mg/dL Est GFR ( Amer) > 60 (> 60) Est GFR (Non-Af Amer) > 60 (> 60) BUN/Creatinine Ratio 6 (6-26) Glucose 138 H (70-105) mg/dL Calculated Osmolality 283 (280-300) Calcium 9.0 (8.6-10.3) mg/dL Urine Color Yellow (Yellow) Urine Clarity Clear (Clear) Urine pH 5.5 (5.0-8.0) pH Units Ur Specific [place] 1.014 (1.010-1.025) Urine Protein Negative (Neg-Trace) mg/dL Urine Glucose (UA) Normal (Normal) mg/dL Urine Ketones Negative (Negative) mg/dL Urine Blood Negative (Negative) Urine Nitrite Negative (Negative) Urine Bilirubin Negative (Negative) Urine Urobilinogen Normal (Normal) mg/dL Ur Leukocyte Esterase Negative (Negative) Salicylates < 2.5 L (15.0-30.0) mg/dL Urine Opiates Screen (Lkpaow=485) ng/mL Acetaminophen < 10 L (10-20) mcg/mL Ur Barbiturates Screen (Ieuwyg=115) ng/mL Ur Phencyclidine Scrn (Cutoff=25) ng/mL Ur Amphetamines Screen (Tcktzt=5419) ng/mL U Benzodiazepines Scrn (Dmxnes=003) ng/mL Urine Cocaine Screen (Cutoff= 300) ng/mL U Marijuana (THC) Screen (Cutoff = 50) ng/mL Ur Drug Screen Interp Ethyl Alcohol 336 H (Less than 10) mg/dL 09/10/18 Range/Units 04:39 WBC (4.3-11.1) K/mcL RBC (4.19-5.50) M/mcL Hgb (12.9-16.9) g/dL Hct (37.5-50.1) % MCV (83.0-100.0) fL MCH (28.0-33.3) pg MCHC (31.6-35.5) g/dL RDW (11.5-14.5) % Plt Count (140-400) K/mcL MPV (9.4-12.4) fL Immature Gran % (0-4) % Seg Neutrophils % % Lymphocytes % % Monocytes % % Eosinophils % % Basophils % % Neutrophils # (1.6-8.9) K/mcL Lymphocytes # (0.6-4.6) K/mcL Monocytes # (0.0-1.3) K/mcL Eosinophils # (0.0-0.6) K/mcL Basophils # (0.0-0.2) K/mcL Sodium (136-145) mEq/L Potassium (3.5-5.1) mEq/L Chloride (98-107) mEq/L Carbon Dioxide (23-29) mEq/L BUN (8-23) mg/dL Creatinine (0.70-1.30) mg/dL Est GFR ( Amer) (> 60) Est GFR (Non-Af Amer) (> 60) BUN/Creatinine Ratio (6-26) Glucose (70-105) mg/dL Calculated Osmolality (280-300) Calcium (8.6-10.3) mg/dL Urine Color (Yellow) Urine Clarity (Clear) Urine pH (5.0-8.0) pH Units Ur Specific [place] (1.010-1.025) Urine Protein (Neg-Trace) mg/dL Urine Glucose (UA) (Normal) mg/dL Urine Ketones (Negative) mg/dL Urine Blood (Negative) Urine Nitrite (Negative) Urine Bilirubin (Negative) Urine Urobilinogen (Normal) mg/dL Ur Leukocyte Esterase (Negative) Salicylates (15.0-30.0) mg/dL Urine Opiates Screen Negative (Ydgfzr=855) ng/mL Acetaminophen (10-20) mcg/mL Ur Barbiturates Screen Negative (Vjtxly=508) ng/mL Ur Phencyclidine Scrn Negative (Cutoff=25) ng/mL Ur Amphetamines Screen Negative (Jpvlna=3234) ng/mL U Benzodiazepines Scrn Negative (Krurtn=925) ng/mL Urine Cocaine Screen Negative (Cutoff= 300) ng/mL U Marijuana (THC) Screen Negative (Cutoff = 50) ng/mL Ur Drug Screen Interp See Below Ethyl Alcohol (Less than 10) mg/dL - Radiology Data Radiology results reviewed: Yes I reviewed the patient's radiology results. Cervical Spine CT 09/09/18 21:36 IMPRESSION: No acute intracranial abnormality. No acute cervical spine fracture D/ / Satinder Jeter / Satinder Jeter Interpreting Provider: Satinder Jeter Head CT 09/09/18 21:36 IMPRESSION: No acute intracranial abnormality. No acute cervical spine fracture D/ / Satinder Jeter / Satinder Jeter Interpreting Provider: Satinder Jeter Attestation Statement - Attestation Attestation: I, Eligio Hernandez MD, personally evaluated this patient and discussed their management with the resident physician. I reviewed the resident's note and agree with the documented findings, medical decision making, and plan of care. 67-year-old male presents to the emergency department by EMS from a [place] [facility] with a complaint of suicidal ideation and alcohol intoxication. Patient admits to drinking a "Kei Cobra" tonight. He states he does not drink every day. Patient states people have been talking about him behind his back. He admits he wants to kill himself and states he is going to stab himself with a knife. On examination patient is a well-developed well-nourished elderly male in no acute distress. He is alert. He is obviously intoxicated with slurred speech and difficult to understand. There is a contusion to the left eyebrow region with some swelling and ecchymosis. EOMs intact. Neck supple with no obvious tenderness. Breath sounds are equal bilaterally. Heart regular. Abdomen soft with present bowel sounds. No gross focal neurological deficits. CT of the head and neck was negative. Labs reviewed. EtOH 336. [place] slip signed. We will observe the patient tonight and repeat alcohol level in the morning. Patient will be signed out to the oncoming dayshift physician, Dr. Iris Polo..
[2018-09-10 04:55] LABS: Bilirubin,Urine Negative (Negative); Blood,Urine Negative (Negative); Clarity,Urine Clear (Clear); Color,Urine Yellow (Yellow); Glucose,Urine (UA) Normal (Normal); Ketones,Urine Negative (Negative); Leukocyte Esterase,Urine Negative (Negative); Nitrite,Urine Negative (Negative); PH,Urine 5.5 pH Units (5.0-8.0); Protein,Urine Negative (Neg-Trace); Specific Gravity,Urine 1.014 (1.010-1.025); Urobilinogen,Urine Normal (Normal)
[2018-09-10 05:14] LABS: Amphetamine Screen,Urine Negative ng/mL (Cutoff=1000); Barbiturate Screen,Urine Negative ng/mL (Cutoff=200); Benzodiazepines Screen,Urine Negative ng/mL (Cutoff=200); Cannabinoid Screen,Urine Negative ng/mL (Cutoff = 50); Cocaine Screen,Urine Negative ng/mL (Cutoff= 300); Opiate Screen,Urine Negative ng/mL (Cutoff=300); Phencyclidine Screen,Urine Negative ng/mL (Cutoff=25)
--- NOTE | 2018-09-10 07:24 | Emergency Department Note ---
Disposition Clinical Impression: Suicidal ideation, Intoxication Disposition: Still a Patient Condition: Good Referrals: NONE,PCP [Primary Care Provider] - Forms: ED Satisfaction Letter General Adult HPI - General Chief complaint: ED Psychiatric Symptoms Stated complaint: si/etoh Time Seen by Provider: 09/09/18 21:32 Source: patient, EMS Mode of arrival: EMS Limitations: other (intoxicated) - History of Present Illness Pain Scale: 0 - Related Data Home Medications Medication Instructions Recorded Confirmed Aspirin Enteric Coated [Aspirin EC] 81 mg PO DAILY 04/29/16 02/27/18 Febuxostat [Uloric] 80 mg PO DAILY 04/29/16 02/27/18 Lisinopril [Zestril] 20 mg PO DAILY 02/27/18 02/27/18 Previous Rx's Medication Instructions Recorded Doxycycline 100 mg PO BID 5 Days #10 capsule 03/08/18 Folic Acid 1 mg PO DAILY 30 Days #30 tablet 03/08/18 Mirtazapine [Remeron] 7.5 mg PO HS 30 Days #30 tablet 03/08/18 Thiamine (B-1) [Vitamin B-1] 100 mg PO DAILY 30 Days #30 tablet 03/08/18 Vitamin B Complex/Vit C/Vit E 1 each PO DAILY 30 Days #30 tablet 03/08/18 [Stresstab] hydrOXYzine pamoate [HydrOXYzine 25 mg PO TID PRN 30 Days #30 03/08/18 Pamoate] capsule Allergies Allergy/AdvReac Type Severity Reaction Status Date / Time Penicillins [PCN] Allergy Hives Verified 05/10/18 11:57 Constitutional: Denies: fever Cardiovascular: Denies: chest pain Respiratory: Denies: dyspnea Gastrointestinal: Reports: vomiting. Denies: abdominal pain, nausea, diarrhea Neurological: Denies: headache, weakness, numbness, paresthesias Psychiatric: Reports: depression, suicidal thoughts. Denies: homicidal thoughts, auditory hallucinations, visual hallucinations Past Medical History - Past Medical History Medical history: Reports: hepatitis, hyperlipidemia, hypertension Surgical history: Reports: appendectomy Psychiatric history: Reports: previous psychiatric hospitalization - Social History Smoking Status: Current every day smoker Alcohol use: Reports: occasionally Drug use: Reports: none Physical Exam - General Limitations: other (intoxicated) General appearance: alert, appears intoxicated Course Course Narrative: accepted sign out from night team (David/Jean Marie). This is a 67 year old male intoxicated from long-term with [facility]. Brennon is currently intoxicateed and we are waiting for a repeast ETOH and then will conuslt 1A. In no acute distress, resting comfortably at bedside Vital Signs Temperature 97.6 F 09/09/18 21:31 Pulse Rate 75 09/09/18 21:31 Respiratory Rate 18 09/09/18 21:31 Blood Pressure 127/92 09/09/18 21:31 O2 Sat by Pulse Oximetry 98 09/09/18 21:31 Temperature 98.8 F 09/10/18 06:56 Pulse Rate 78 09/10/18 06:56 Respiratory Rate 19 09/10/18 06:56 Blood Pressure 97/65 09/10/18 06:56 O2 Sat by Pulse Oximetry 94 09/10/18 06:56 Oxygen Delivery Oxygen Delivery Room Air Medical Decision Making - Lab Data Result diagrams: 09/09/18 21:50 09/09/18 21:50 Lab Results 09/09/18 09/09/18 09/10/18 Range/Units 21:50 21:50 04:39 WBC 8.7 (4.3-11.1) K/mcL RBC 5.39 (4.19-5.50) M/mcL Hgb 15.6 (12.9-16.9) g/dL Hct 46.8 (37.5-50.1) % MCV 86.8 (83.0-100.0) fL MCH 28.9 (28.0-33.3) pg MCHC 33.3 (31.6-35.5) g/dL RDW 12.9 (11.5-14.5) % Plt Count 139 L (140-400) K/mcL MPV 10.1 (9.4-12.4) fL Immature Gran % 1.2 (0-4) % Seg Neutrophils % 75.2 % Lymphocytes % 17.8 % Monocytes % 4.6 % Eosinophils % 0.7 % Basophils % 0.5 % Neutrophils # 6.5 (1.6-8.9) K/mcL Lymphocytes # 1.6 (0.6-4.6) K/mcL Monocytes # 0.4 (0.0-1.3) K/mcL Eosinophils # 0.1 (0.0-0.6) K/mcL Basophils # 0.0 (0.0-0.2) K/mcL Sodium 137 (136-145) mEq/L Potassium 3.2 L (3.5-5.1) mEq/L Chloride 104 (98-107) mEq/L Carbon Dioxide 19 L (23-29) mEq/L BUN 5 L (8-23) mg/dL Creatinine 0.83 (0.70-1.30) mg/dL Est GFR ( Amer) > 60 (> 60) Est GFR (Non-Af Amer) > 60 (> 60) BUN/Creatinine Ratio 6 (6-26) Glucose 138 H (70-105) mg/dL Calculated Osmolality 283 (280-300) Calcium 9.0 (8.6-10.3) mg/dL Urine Color Yellow (Yellow) Urine Clarity Clear (Clear) Urine pH 5.5 (5.0-8.0) pH Units Ur Specific [place] 1.014 (1.010-1.025) Urine Protein Negative (Neg-Trace) mg/dL Urine Glucose (UA) Normal (Normal) mg/dL Urine Ketones Negative (Negative) mg/dL Urine Blood Negative (Negative) Urine Nitrite Negative (Negative) Urine Bilirubin Negative (Negative) Urine Urobilinogen Normal (Normal) mg/dL Ur Leukocyte Esterase Negative (Negative) Salicylates < 2.5 L (15.0-30.0) mg/dL Urine Opiates Screen (Yywirk=947) ng/mL Acetaminophen < 10 L (10-20) mcg/mL Ur Barbiturates Screen (Tpqbnp=045) ng/mL Ur Phencyclidine Scrn (Cutoff=25) ng/mL Ur Amphetamines Screen (Ylwnzh=8277) ng/mL U Benzodiazepines Scrn (Ivimlx=675) ng/mL Urine Cocaine Screen (Cutoff= 300) ng/mL U Marijuana (THC) Screen (Cutoff = 50) ng/mL Ur Drug Screen Interp Ethyl Alcohol 336 H (Less than 10) mg/dL 09/10/18 Range/Units 04:39 WBC (4.3-11.1) K/mcL RBC (4.19-5.50) M/mcL Hgb (12.9-16.9) g/dL Hct (37.5-50.1) % MCV (83.0-100.0) fL MCH (28.0-33.3) pg MCHC (31.6-35.5) g/dL RDW (11.5-14.5) % Plt Count (140-400) K/mcL MPV (9.4-12.4) fL Immature Gran % (0-4) % Seg Neutrophils % % Lymphocytes % % Monocytes % % Eosinophils % % Basophils % % Neutrophils # (1.6-8.9) K/mcL Lymphocytes # (0.6-4.6) K/mcL Monocytes # (0.0-1.3) K/mcL Eosinophils # (0.0-0.6) K/mcL Basophils # (0.0-0.2) K/mcL Sodium (136-145) mEq/L Potassium (3.5-5.1) mEq/L Chloride (98-107) mEq/L Carbon Dioxide (23-29) mEq/L BUN (8-23) mg/dL Creatinine (0.70-1.30) mg/dL Est GFR ( Amer) (> 60) Est GFR (Non-Af Amer) (> 60) BUN/Creatinine Ratio (6-26) Glucose (70-105) mg/dL Calculated Osmolality (280-300) Calcium (8.6-10.3) mg/dL Urine Color (Yellow) Urine Clarity (Clear) Urine pH (5.0-8.0) pH Units Ur Specific [place] (1.010-1.025) Urine Protein (Neg-Trace) mg/dL Urine Glucose (UA) (Normal) mg/dL Urine Ketones (Negative) mg/dL Urine Blood (Negative) Urine Nitrite (Negative) Urine Bilirubin (Negative) Urine Urobilinogen (Normal) mg/dL Ur Leukocyte Esterase (Negative) Salicylates (15.0-30.0) mg/dL Urine Opiates Screen Negative (Gnqlbv=458) ng/mL Acetaminophen (10-20) mcg/mL Ur Barbiturates Screen Negative (Wclxqj=447) ng/mL Ur Phencyclidine Scrn Negative (Cutoff=25) ng/mL Ur Amphetamines Screen Negative (Bscljg=3324) ng/mL U Benzodiazepines Scrn Negative (Mpvduj=236) ng/mL Urine Cocaine Screen Negative (Cutoff= 300) ng/mL U Marijuana (THC) Screen Negative (Cutoff = 50) ng/mL Ur Drug Screen Interp See Below Ethyl Alcohol (Less than 10) mg/dL
--- NOTE | 2018-09-10 19:17 | Emergency Department Note ---
Disposition Clinical Impression: Suicidal ideation, Intoxication Disposition: Admitted As Inpatient Condition: Good Time of Disposition: 19:17 General Adult HPI - General Chief complaint: ED Psychiatric Symptoms Stated complaint: si/etoh Time Seen by Provider: 09/09/18 21:32 Source: patient, EMS Mode of arrival: EMS Limitations: other (intoxicated) - History of Present Illness Pain Scale: 0 - Related Data Home Medications Medication Instructions Recorded Confirmed Aspirin Enteric Coated [Aspirin EC] 81 mg PO DAILY 04/29/16 02/27/18 Febuxostat [Uloric] 80 mg PO DAILY 04/29/16 02/27/18 Lisinopril [Zestril] 20 mg PO DAILY 02/27/18 02/27/18 Previous Rx's Medication Instructions Recorded Folic Acid 1 mg PO DAILY 30 Days #30 tablet 03/08/18 Mirtazapine [Remeron] 7.5 mg PO HS 30 Days #30 tablet 03/08/18 Thiamine (B-1) [Vitamin B-1] 100 mg PO DAILY 30 Days #30 tablet 03/08/18 Vitamin B Complex/Vit C/Vit E 1 each PO DAILY 30 Days #30 tablet 03/08/18 [Stresstab] hydrOXYzine pamoate [HydrOXYzine 25 mg PO TID PRN 30 Days #30 03/08/18 Pamoate] capsule Allergies Allergy/AdvReac Type Severity Reaction Status Date / Time Penicillins [PCN] Allergy Hives Verified 05/10/18 11:57 Constitutional: Denies: fever Cardiovascular: Denies: chest pain Respiratory: Denies: dyspnea Gastrointestinal: Reports: vomiting. Denies: abdominal pain, nausea, diarrhea Neurological: Denies: headache, weakness, numbness, paresthesias Psychiatric: Reports: depression, suicidal thoughts. Denies: homicidal thoughts, auditory hallucinations, visual hallucinations Past Medical History - Past Medical History Medical history: Reports: hepatitis, hyperlipidemia, hypertension Surgical history: Reports: appendectomy Psychiatric history: Reports: previous psychiatric hospitalization - Social History Smoking Status: Current every day smoker Alcohol use: Reports: occasionally Drug use: Reports: none Physical Exam - General Limitations: other (intoxicated) General appearance: alert, appears intoxicated Course Course Narrative: Patient was signed out to me at shift change from Dr. Iris Polo. Patient seen originally by me on my last shift 24 hours ago. After reevaluation by the [address] psychiatry department the decision was made to admit the patient here to the [address] psychiatric unit. Vital Signs Temperature 97.6 F 09/09/18 21:31 Pulse Rate 75 09/09/18 21:31 Respiratory Rate 18 09/09/18 21:31 Blood Pressure 127/92 09/09/18 21:31 O2 Sat by Pulse Oximetry 98 09/09/18 21:31 Temperature 98.7 F 09/10/18 11:38 Pulse Rate 85 09/10/18 11:38 Respiratory Rate 18 09/10/18 11:38 Blood Pressure 95/57 09/10/18 11:38 O2 Sat by Pulse Oximetry 94 09/10/18 11:38 Oxygen Delivery Oxygen Delivery Room Air Medical Decision Making - Lab Data Result diagrams: 09/09/18 21:50 09/09/18 21:50 Lab Results 09/09/18 09/09/18 09/10/18 Range/Units 21:50 21:50 04:39 WBC 8.7 (4.3-11.1) K/mcL RBC 5.39 (4.19-5.50) M/mcL Hgb 15.6 (12.9-16.9) g/dL Hct 46.8 (37.5-50.1) % MCV 86.8 (83.0-100.0) fL MCH 28.9 (28.0-33.3) pg MCHC 33.3 (31.6-35.5) g/dL RDW 12.9 (11.5-14.5) % Plt Count 139 L (140-400) K/mcL MPV 10.1 (9.4-12.4) fL Immature Gran % 1.2 (0-4) % Seg Neutrophils % 75.2 % Lymphocytes % 17.8 % Monocytes % 4.6 % Eosinophils % 0.7 % Basophils % 0.5 % Neutrophils # 6.5 (1.6-8.9) K/mcL Lymphocytes # 1.6 (0.6-4.6) K/mcL Monocytes # 0.4 (0.0-1.3) K/mcL Eosinophils # 0.1 (0.0-0.6) K/mcL Basophils # 0.0 (0.0-0.2) K/mcL Sodium 137 (136-145) mEq/L Potassium 3.2 L (3.5-5.1) mEq/L Chloride 104 (98-107) mEq/L Carbon Dioxide 19 L (23-29) mEq/L BUN 5 L (8-23) mg/dL Creatinine 0.83 (0.70-1.30) mg/dL Est GFR ( Amer) > 60 (> 60) Est GFR (Non-Af Amer) > 60 (> 60) BUN/Creatinine Ratio 6 (6-26) Glucose 138 H (70-105) mg/dL Calculated Osmolality 283 (280-300) Calcium 9.0 (8.6-10.3) mg/dL Urine Color Yellow (Yellow) Urine Clarity Clear (Clear) Urine pH 5.5 (5.0-8.0) pH Units Ur Specific [place] 1.014 (1.010-1.025) Urine Protein Negative (Neg-Trace) mg/dL Urine Glucose (UA) Normal (Normal) mg/dL Urine Ketones Negative (Negative) mg/dL Urine Blood Negative (Negative) Urine Nitrite Negative (Negative) Urine Bilirubin Negative (Negative) Urine Urobilinogen Normal (Normal) mg/dL Ur Leukocyte Esterase Negative (Negative) Salicylates < 2.5 L (15.0-30.0) mg/dL Urine Opiates Screen (Wkdtxs=773) ng/mL Acetaminophen < 10 L (10-20) mcg/mL Ur Barbiturates Screen (Eopiyd=507) ng/mL Ur Phencyclidine Scrn (Cutoff=25) ng/mL Ur Amphetamines Screen (Tqwiok=7212) ng/mL U Benzodiazepines Scrn (Ldoprx=734) ng/mL Urine Cocaine Screen (Cutoff= 300) ng/mL U Marijuana (THC) Screen (Cutoff = 50) ng/mL Ur Drug Screen Interp Ethyl Alcohol 336 H (Less than 10) mg/dL 09/10/18 09/10/18 09/10/18 Range/Units 04:39 07:53 14:02 WBC (4.3-11.1) K/mcL RBC (4.19-5.50) M/mcL Hgb (12.9-16.9) g/dL Hct (37.5-50.1) % MCV (83.0-100.0) fL MCH (28.0-33.3) pg MCHC (31.6-35.5) g/dL RDW (11.5-14.5) % Plt Count (140-400) K/mcL MPV (9.4-12.4) fL Immature Gran % (0-4) % Seg Neutrophils % % Lymphocytes % % Monocytes % % Eosinophils % % Basophils % % Neutrophils # (1.6-8.9) K/mcL Lymphocytes # (0.6-4.6) K/mcL Monocytes # (0.0-1.3) K/mcL Eosinophils # (0.0-0.6) K/mcL Basophils # (0.0-0.2) K/mcL Sodium (136-145) mEq/L Potassium (3.5-5.1) mEq/L Chloride (98-107) mEq/L Carbon Dioxide (23-29) mEq/L BUN (8-23) mg/dL Creatinine (0.70-1.30) mg/dL Est GFR ( Amer) (> 60) Est GFR (Non-Af Amer) (> 60) BUN/Creatinine Ratio (6-26) Glucose (70-105) mg/dL Calculated Osmolality (280-300) Calcium (8.6-10.3) mg/dL Urine Color (Yellow) Urine Clarity (Clear) Urine pH (5.0-8.0) pH Units Ur Specific [place] (1.010-1.025) Urine Protein (Neg-Trace) mg/dL Urine Glucose (UA) (Normal) mg/dL Urine Ketones (Negative) mg/dL Urine Blood (Negative) Urine Nitrite (Negative) Urine Bilirubin (Negative) Urine Urobilinogen (Normal) mg/dL Ur Leukocyte Esterase (Negative) Salicylates (15.0-30.0) mg/dL Urine Opiates Screen Negative (Whqwiz=111) ng/mL Acetaminophen (10-20) mcg/mL Ur Barbiturates Screen Negative (Vufwic=832) ng/mL Ur Phencyclidine Scrn Negative (Cutoff=25) ng/mL Ur Amphetamines Screen Negative (Inzzzk=7838) ng/mL U Benzodiazepines Scrn Negative (Qgflor=207) ng/mL Urine Cocaine Screen Negative (Cutoff= 300) ng/mL U Marijuana (THC) Screen Negative (Cutoff = 50) ng/mL Ur Drug Screen Interp See Below Ethyl Alcohol 163 H 10 H (Less than 10) mg/dL
[2018-09-10] MEDS ORDERED: MOM Conc 10 ML UD.LIQ PO PRN (20:12)
[2018-09-10] MEDS ORDERED: Mag Hydrox/Al Hydrox/Simeth 30 ML UDC PO PRN (20:12)
[2018-09-10] MEDS ORDERED: *HR* LORazepam 2 MG/ML VIAL IM PRN (20:12)
[2018-09-10] MEDS ORDERED: Ibuprofen 400 MG TABLET PO PRN (20:12)
[2018-09-10] MEDS ORDERED: Haloperidol Lactate 5 MG/ML VIAL IM PRN (20:12)
[2018-09-10] MEDS ORDERED: *HR* LORazepam 1 MG TABLET PO PRN (20:12)
[2018-09-10] MEDS ORDERED: cloNIDine HCl 0.1 MG TABLET PO ONE (21:40)
[2018-09-11] MEDS: Lisinopril 20 MG TABLET PO SCH (08:57)
--- NOTE | 2018-09-11 13:37 | Psychiatry History & Physical ---
Date of Encounter: 09/11/18 Time of Encounter: 13:00 History of Present Illness Medicare Admission Attestation: For traditional Medicare patients the provided hospital inpatient services are reasonable and necessary and in the case of services not specified as inpatient-only under 42 CFR 419.22 (n), that they are appropriately provided as inpatient services in accordance 42 CFR 412.3. For Critical Access Hospital the patient may reasonably be expected to be discharged or transferred to a hospital within 96 hours after admission to the Critical Access Hospital. Admitted From: Emergency Dept Plans for Post Hospital Care: Home History of Present Illness: Patient is a 67-year-old male with past medical history of depression, alcohol abuse. He presents today via EMS from a skilled nursing due to concern for intoxi cation and suicidal ideation. Patient states that he drank a full bottle of Kei Cobra prior to presentation. He says that he wants to kill himself by using a knife to stab or cut himself. Denies any actual self-harm or congestion prior to arrival. Denies any other chest pain, shortness breath, nausea, vomiting, diarrhea, abdominal pain. Patient is clinically intoxicated on exam so review of systems is limited. Unknown if patient has had previous admissions for behavioral health reasons. Patient denies daily alcohol use, states that he only drinks alcohol occasionally because "he cannot afford to drink every day." Pt is a 67 yo ,, male, never , with no children, who presents for alcohol use D/C, depression and anxiety . Pt noted he currently lives in [place] at skilled nursing. Pt noted recent exacerbation of depression. Pt states when I came in I thought I wanted to hurt myself and i was drunk. Pt noted I came in because I needed some help I feel much better now. I feel safe and comfortable on the unit. Pt denied any side effects to current medications. Pt was in agreement with current treatment plan. Pt noted that he is doing alright today. Pt noted he slept 6 hours broken night. Pt noted his appetite is its down. Pt rated his depression a 0, on a scale of zero to ten with ten being the worst and zero being none. Pt rate his anxiety a 5, on the same scale. Pt denied any auditory or visual hallucinations. Pt denied any current thoughts to harm himself or anyone else. However pt noted occasional passive suicidal ideations. Pt noted that both his mother and father and brother are PT denies any family mh hx. Pt noted that his highest level of education is [employer]. Pt noted he is currently unemployed and receives SSDI. Pt denied any inpt psychiatric hospitalizations. Pt denied any previous suicide attempts. Pt denied any family hx of suicides. PT denied any family mental health hx. Pt follows Dr. Toan Clemens 10/02/2018 at 1600 Pt denied hx of seizures, TBI or HIV. Pt noted hx of HEP C . No TD noted, AIMS=0 MSE: Assessment/Plan 1.Interval hx 2.Continue current medications 3.Review current labs 4.Pt had an opportunity to ask questions and discuss current treatment plan. 5.Supportive therapy was provided 6.Pt encouraged to consider group or individual therapy 7.Pt was in agreement with treatment plan. 8.Pt was educated on the risks benefits and side effects of current medications. 9. start sertraline 50 mg PO QHS Past Med Surg Social Fam HX - Past Medical History Medical history: hepatitis, hyperlipidemia, hypertension - Past Psychiatric History Psychiatric history: Reports: depression, previous psychiatric hospitalization Family psychiatric history: No Family History of Suicide: None - Past Surgical History Surgical History: appendectomy - Social History Smoking Status: Current every day smoker Smokeless Tobacco Status: No Alcohol use: occasionally Drug use: none - Family History Mother History Unknown: Yes Name: Sandrine Mason Age at : 94 Cause of : "old age" Father Name: Vik Mason Age at : 58 Cause of : "bad heart" Hx Family Cardiac Disorders: Yes Medications & Allergies Aspirin Enteric Coated [Aspirin EC] 81 mg PO DAILY 04/29/16 [History] Febuxostat [Uloric] 80 mg PO DAILY 04/29/16 [History] Lisinopril [Zestril] 20 mg PO DAILY 02/27/18 [History] Folic Acid 1 mg PO DAILY 30 Days #30 tablet 03/08/18 [Rx] Mirtazapine [Remeron] 7.5 mg PO HS 30 Days #30 tablet 03/08/18 [Rx] Thiamine (B-1) [Vitamin B-1] 100 mg PO DAILY 30 Days #30 tablet 03/08/18 [Rx] Vitamin B Complex/Vit C/Vit E [Stresstab] 1 each PO DAILY 30 Days #30 tablet 03/08/18 [Rx] hydrOXYzine pamoate [HydrOXYzine Pamoate] 25 mg PO TID PRN 30 Days #30 capsule 03/08/18 [Rx] Allergy/AdvReac Type Severity Reaction Status Date / Time Penicillins [PCN] Allergy Hives Verified 05/10/18 11:57 Review of Systems Constitutional: Denies: fever, chills, weakness, weight change Eyes: Denies: eye pain, vision change Ears, Nose, Throat: Denies: ear pain, throat pain, dental pain, hearing loss, congestion Cardiovascular: Denies: chest pain, palpitations, dyspnea on exertion Respiratory: Denies: cough, dyspnea, wheezes Gastrointestinal: Denies: abdominal pain, nausea, vomiting, diarrhea, constipation Genitourinary male: Denies: urgency, dysuria, frequency, genital lesions Musculoskeletal: Denies: joint swelling, joint pain Integumentary: Denies: rash, lesions, pruritus Neurological: Denies: headache, weakness, numbness, memory loss Psychiatric: Reports: depression, suicidal ideation, hopelessness Endocrine: Denies: fatigue, heat or cold intolerance Hematologic/Lymphatic: Denies: easy bruising, lymphadenopathy Allergic/Immunologic: Denies: urticaria, itchy eyes Exam - HEENT Head exam IM: Present: atraumatic Eye exam IM: Present: EOMI, normal appearance, PERRL ENT exam IM: Present: normal exam - Neurological Neurological exam: Present: CN II-XII intact - Respiratory Respiratory exam IM: Present: CTAB - GI/Abdominal GI/Abdominal exam IM: Present: normal bowel sounds, soft. Absent: tenderness - Extremities Extremities exam IM: Present: full ROM - Skin Skin exam IM: Present: dry, warm - Constitutional Vitals: Temp Pulse Resp BP Pulse Ox 98.7 F 72 16 147/97 96 09/11/18 09:00 09/11/18 09:00 09/11/18 09:00 09/11/18 09:00 09/11/18 09:00 General appearance: age & developmentally appropriate, well-groomed, well- nourished - Musculoskeletal Gait: normal Station: relaxed Strength & Tone: normal for patient - Psychiatric Patient Orientation: Yes Person, Yes Time, Yes Place Level of alertness: Alert Behavior: calm, cooperative Psychomotor activity: Slowed Eye Contact: Minimal Contact Mood Description: Depressed Affect description: dysphoric Speech Volume: Normal Speech pattern: normal rate, normal rhythm, normal tone, slurred Language & Vocabulary: consistent with education, limited Thought Process: Linear, Goal Oriented Thought Content: Yes Suicidal ideation, No Homicidal ideation, No Overt delusions Perceptual Disturbances: No Auditory hallucinations, No Visual hallucinations Attention Span Ability: Capable of Focused Attention Memory Description: Grossly Intact Patient Reliability: Questionable Historian Fund of knowledge: Yes abstraction ability, Yes average, Yes aware of current events Intelligence Estimate: Below Average Judgment: Limited Insight: Partial Results - Drug Levels and Toxicology Drug Levels and Toxicology: Drug Levels and Toxicity 09/10/18 14:02 Ethyl Alcohol 10 H - Labs Labs: Laboratory Last Values WBC 8.7 K/mcL (4.3-11.1) 09/09/18 21:50 RBC 5.39 M/mcL (4.19-5.50) 09/09/18 21:50 Hgb 15.6 g/dL (12.9-16.9) 09/09/18 21:50 Hct 46.8 % (37.5-50.1) 09/09/18 21:50 MCV 86.8 fL (83.0-100.0) 09/09/18 21:50 MCH 28.9 pg (28.0-33.3) 09/09/18 21:50 MCHC 33.3 g/dL (31.6-35.5) 09/09/18 21:50 RDW 12.9 % (11.5-14.5) 09/09/18 21:50 Plt Count 139 K/mcL (140-400) L 09/09/18 21:50 MPV 10.1 fL (9.4-12.4) 09/09/18 21:50 Immature Gran % 1.2 % (0-4) 09/09/18 21:50 Seg Neutrophils % 75.2 % 09/09/18 21:50 Lymphocytes % 17.8 % 09/09/18 21:50 Monocytes % 4.6 % 09/09/18 21:50 Eosinophils % 0.7 % 09/09/18 21:50 Basophils % 0.5 % 09/09/18 21:50 Neutrophils # 6.5 K/mcL (1.6-8.9) 09/09/18 21:50 Lymphocytes # 1.6 K/mcL (0.6-4.6) 09/09/18 21:50 Monocytes # 0.4 K/mcL (0.0-1.3) 09/09/18 21:50 Eosinophils # 0.1 K/mcL (0.0-0.6) 09/09/18 21:50 Basophils # 0.0 K/mcL (0.0-0.2) 09/09/18 21:50 Sodium 137 mEq/L (136-145) 09/09/18 21:50 Potassium 3.2 mEq/L (3.5-5.1) L 09/09/18 21:50 Chloride 104 mEq/L (98-107) 09/09/18 21:50 Carbon Dioxide 19 mEq/L (23-29) L 09/09/18 21:50 BUN 5 mg/dL (8-23) L 09/09/18 21:50 Creatinine 0.83 mg/dL (0.70-1.30) 09/09/18 21:50 Est GFR ( Amer) > 60 (> 60) 09/09/18 21:50 Est GFR (Non-Af Amer) > 60 (> 60) 09/09/18 21:50 BUN/Creatinine Ratio 6 (6-26) 09/09/18 21:50 Glucose 138 mg/dL (70-105) H 09/09/18 21:50 Calculated Osmolality 283 (280-300) 09/09/18 21:50 Calcium 9.0 mg/dL (8.6-10.3) 09/09/18 21:50 Urine Color Yellow (Yellow) 09/10/18 04:39 Urine Clarity Clear (Clear) 09/10/18 04:39 Urine pH 5.5 pH Units (5.0-8.0) 09/10/18 04:39 Ur Specific [place] 1.014 (1.010-1.025) 09/10/18 04:39 Urine Protein Negative mg/dL (Neg-Trace) 09/10/18 04:39 Urine Glucose (UA) Normal mg/dL (Normal) 09/10/18 04:39 Urine Ketones Negative mg/dL (Negative) 09/10/18 04:39 Urine Blood Negative (Negative) 09/10/18 04:39 Urine Nitrite Negative (Negative) 09/10/18 04:39 Urine Bilirubin Negative (Negative) 09/10/18 04:39 Urine Urobilinogen Normal mg/dL (Normal) 09/10/18 04:39 Ur Leukocyte Esterase Negative (Negative) 09/10/18 04:39 Salicylates < 2.5 mg/dL (15.0-30.0) L 09/09/18 21:50 Urine Opiates Screen Negative ng/mL (Rlnamr=635) 09/10/18 04:39 Acetaminophen < 10 mcg/mL (10-20) L 09/09/18 21:50 Ur Barbiturates Screen Negative ng/mL (Npqngz=377) 09/10/18 04:39 Ur Phencyclidine Scrn Negative ng/mL (Cutoff=25) 09/10/18 04:39 Ur Amphetamines Screen Negative ng/mL (Dakxxp=5017) 09/10/18 04:39 U Benzodiazepines Scrn Negative ng/mL (Wnixim=073) 09/10/18 04:39 Urine Cocaine Screen Negative ng/mL (Cutoff= 300) 09/10/18 04:39 U Marijuana (THC) Screen Negative ng/mL (Cutoff = 50) 09/10/18 04:39 Ur Drug Screen Interp See Below 09/10/18 04:39 Ethyl Alcohol 10 mg/dL (Less than 10) H 09/10/18 14:02 Assessment and Plan (1) Intoxication Current visit: Yes Status: Acute Plan: Admit inpatient for safety and stabilization, Close observation, Suicide Precautions per unit protocol, Encourage participation in unit milieu, Group Therapy, Monitor sleep, Monitor appetite Risks, benefits, side effects, alternatives discussed w/pt: Yes Patient agreeable to treatment: Yes Plans for Post Hospital Care: at Home (2) Suicidal ideation Current visit: Yes Status: Acute Plan: Admit inpatient for safety and stabilization Risks, benefits, side effects, alternatives discussed w/pt: Yes Patient agreeable to treatment: Yes Plans for Post Hospital Care: at Home (3) Major depressive disorder, recurrent, unspecified Current visit: No Status: Acute Plan: Admit inpatient for safety and stabilization, Close observation, Suicide Precautions per unit protocol, Encourage participation in unit milieu, Group Therapy, Monitor sleep, Monitor appetite Risks, benefits, side effects, alternatives discussed w/pt: Yes Patient agreeable to treatment: Yes Plans for Post Hospital Care: at Home Qualifiers: Active/Remission status: currently active Major depression episode severity: moderate Qualified Code(s): F33.1 - Major depressive disorder, recurrent, moderate
[2018-09-11] MEDS: traZODone 50 MG TABLET PO PRN (20:36)
[2018-09-11] MEDS: hydrOXYzine pamoate 25 MG CAPSULE PO PRN (20:36)
[2018-09-12] MEDS: Lisinopril 20 MG TABLET PO SCH (09:00)
--- NOTE | 2018-09-12 10:45 | Psychiatry Progress Note ---
Date of Encounter: 09/12/18 Time of Encounter: 09:45 Subjective Interval history: Pt is a 67 yo ,, male, never , with no children, who presents for alcohol use D/C, depression and anxiety . Pt noted he currently lives in [place] at [facility]. Pt noted recent exacerbation of depression. Pt states when I came in I thought I wanted to hurt myself and i was drunk. Pt noted I came in because I needed some help I feel much better now I continue to improve slowly. I feel safe and comfortable on the unit. Pt denied any side effects to current medications. Pt was in agreement with current treatment plan. Pt noted that he is doing alright today. Pt noted he slept 7 hours broken night. Pt noted his appetite is its good. Pt rated his depression a 8, on a scale of zero to ten with ten being the worst and zero being none. Pt rate his anxiety a 6, on the same scale. Pt denied any auditory or visual hallucinations. Pt denied any current thoughts to harm himself or anyone else. However pt continues to note occasional passive suicidal ideations, Pt noted if the thoughts get bad he would notify staff immediately. Pt follows Dr. Toan Clemens 10/02/2018 at 1600 Pt denied hx of seizures, TBI or HIV. Pt noted hx of HEP C . No TD noted, AIMS=0 Assessment/Plan 1.Interval hx 2.Continue current medications 3.Review current labs 4.Pt had an opportunity to ask questions and discuss current treatment plan. 5.Supportive therapy was provided 6.Pt encouraged to consider group or individual therapy 7.Pt was in agreement with treatment plan. 8.Pt was educated on the risks benefits and side effects of current medications. 9. Continue sertraline 50 mg PO QHS Review of Systems Constitutional: Denies: fever, chills, weakness, weight change Eyes: Denies: eye pain, vision change Ears, Nose, Throat: Denies: ear pain, throat pain, dental pain, hearing loss, congestion Cardiovascular: Denies: chest pain, palpitations, dyspnea on exertion Respiratory: Denies: cough, dyspnea, wheezes Gastrointestinal: Denies: abdominal pain, nausea, vomiting, diarrhea, constipation Musculoskeletal: Denies: joint swelling, joint pain Neurological: Denies: headache, weakness, numbness, memory loss Psychiatric: Reports: depression, suicidal ideation, hopelessness Results - Vital Signs Vital Signs: Temp Pulse Resp BP Pulse Ox 98.1 F 80 16 167/85 96 09/12/18 09:00 09/12/18 09:00 09/12/18 09:00 09/12/18 09:00 09/12/18 09:00 - Impressions ITS Impressions Cervical Spine CT 09/09/18 21:36 IMPRESSION: No acute intracranial abnormality. No acute cervical spine fracture D/ / Satinder Jeter / Satinder Jeter Interpreting Provider: Satinder Jeter Head CT 09/09/18 21:36 IMPRESSION: No acute intracranial abnormality. No acute cervical spine fracture D/ / Satinder Jeter / Satinder Jeter Interpreting Provider: Satinder Jeter Assessment and Plan (1) Intoxication Current visit: Yes Status: Acute Plan: Continue hospitalization, Close observation, Suicide Precautions per unit protocol, Encourage participation in unit milieu, Group Therapy, Monitor sleep, Monitor appetite Risks, benefits, side effects, alternatives discussed w/pt: Yes Patient agreeable to treatment: Yes (2) Suicidal ideation Current visit: Yes Status: Acute Plan: Continue hospitalization, Close observation, Suicide Precautions per unit protocol, Encourage participation in unit milieu, Group Therapy, Monitor sleep, Monitor appetite Risks, benefits, side effects, alternatives discussed w/pt: Yes Patient agreeable to treatment: Yes (3) Major depressive disorder, recurrent, unspecified Current visit: No Status: Acute Plan: Continue hospitalization, Close observation, Suicide Precautions per unit protocol, Encourage participation in unit milieu, Group Therapy, Monitor sleep, Monitor appetite Risks, benefits, side effects, alternatives discussed w/pt: Yes Patient agreeable to treatment: Yes Qualifiers: Active/Remission status: currently active Major depression episode severity: moderate Qualified Code(s): F33.1 - Major depressive disorder, recurrent, moderate Consult Discharge Plan - Plan Referrals: NONE,PCP [Primary Care Provider] - Psychiatry Exam - Constitutional Vitals: Temp Pulse Resp BP Pulse Ox 98.1 F 80 16 167/85 96 09/12/18 09:00 09/12/18 09:00 09/12/18 09:00 09/12/18 09:00 09/12/18 09:00 General appearance: age & developmentally appropriate, well-groomed, well- nourished - Musculoskeletal Gait: normal Station: relaxed Strength & Tone: normal for patient - Psychiatric Patient Orientation: Yes Person, Yes Time, Yes Place Level of alertness: Alert Behavior: calm, cooperative Psychomotor activity: Slowed Eye Contact: Maintains Eye Contact Mood Description: Depressed Affect description: flat Speech Volume: Normal Speech pattern: normal rhythm, normal tone, fluent, slowed Language & Vocabulary: consistent with education Thought Process: Linear, Goal Oriented Thought Content: No Suicidal ideation, No Homicidal ideation, No Overt delusions Perceptual Disturbances: No Auditory hallucinations, No Visual hallucinations Attention Span Ability: Capable of Focused Attention Memory Description: Grossly Intact Patient Reliability: Reliable Historian Fund of knowledge: Yes abstraction ability, Yes aware of current events Intelligence Estimate: Average Judgment: Limited Insight: Minimal
[2018-09-12] MEDS: hydrOXYzine pamoate 25 MG CAPSULE PO PRN (20:52)
[2018-09-12] MEDS: traZODone 50 MG TABLET PO PRN (20:52)
[2018-09-13] MEDS: Lisinopril 20 MG TABLET PO SCH (08:36)
--- NOTE | 2018-09-13 19:27 | Psychiatry Progress Note ---
Date of Encounter: 09/15/18 Time of Encounter: 17:30 Subjective Interval history: Patient states he continues to be a "little"bit suicidal and would use a knifr if he were going to hurt himself. Patient states he was not getting along with [facility] at his [facility]. States he heard voices there. Patient states he wants to go to a NH. Patient has been in rehab in the past for alcohol abuse. Patient denies suicidal ideation, sleep is good, appetite is good and energy is good. Patient started on Zoloft 50mg/d yesterday. Denies any side effects. Patient currently denies A/V hallucinations. Review of Systems Constitutional: Denies: fever, chills, weakness, weight change Eyes: Denies: eye pain, vision change Ears, Nose, Throat: Denies: ear pain, throat pain, dental pain, hearing loss, congestion Cardiovascular: Denies: chest pain, palpitations, dyspnea on exertion Respiratory: Denies: cough, dyspnea, wheezes Gastrointestinal: Denies: abdominal pain, nausea, vomiting, diarrhea, constipation Genitourinary male: Denies: urgency, dysuria, frequency, hematuria Musculoskeletal: Denies: joint swelling, joint pain Neurological: Denies: headache, weakness, numbness, memory loss Psychiatric: Reports: depression, suicidal ideation, hopelessness Results - Vital Signs Vital Signs: Temp Pulse Resp BP Pulse Ox 97.9 F 64 18 165/92 98 09/13/18 19:09 09/13/18 19:09 09/13/18 19:09 09/13/18 19:09 09/13/18 19:09 - Impressions ITS Impressions Cervical Spine CT 09/09/18 21:36 IMPRESSION: No acute intracranial abnormality. No acute cervical spine fracture D/ / Satinder Jeter / Satinder Jeter Interpreting Provider: Satinder Jeter Head CT 09/09/18 21:36 IMPRESSION: No acute intracranial abnormality. No acute cervical spine fracture D/ / Satinder Jeter / Satinder Jeter Interpreting Provider: Satinder Jeter Assessment and Plan (1) Suicidal ideation Current visit: Yes Status: Acute Plan: Continue hospitalization, Close observation, Suicide Precautions per unit protocol, Encourage participation in unit milieu Risks, benefits, side effects, alternatives discussed w/pt: Yes Patient agreeable to treatment: Yes (2) Major depressive disorder, recurrent, unspecified Current visit: No Status: Acute Plan: Close observation, Suicide Precautions per unit protocol Additional Plan: Will increase Zoloft to 75mg/d and monitor for side effects and improvement/ Risks, benefits, side effects, alternatives discussed w/pt: Yes Patient agreeable to treatment: Yes Qualifiers: Active/Remission status: currently active Major depression episode severity: moderate Qualified Code(s): F33.1 - Major depressive disorder, recurrent, moderate (3) Intoxication Current visit: Yes Status: Acute Plan: Continue hospitalization, Close observation, Suicide Precautions per unit protocol Risks, benefits, side effects, alternatives discussed w/pt: Yes Patient agreeable to treatment: Yes Consult Discharge Plan - Plan Referrals: NONE,PCP [Primary Care Provider] - Psychiatry Exam - Constitutional Vitals: Temp Pulse Resp BP Pulse Ox 97.9 F 64 18 165/92 98 09/13/18 19:09 09/13/18 19:09 09/13/18 19:09 09/13/18 19:09 09/13/18 19:09 General appearance: age & developmentally appropriate, well-groomed, well- nourished - Musculoskeletal Gait: normal Station: relaxed Strength & Tone: normal for patient - Psychiatric Patient Orientation: Yes Person, Yes Time, Yes Place Level of alertness: Alert Behavior: calm, cooperative Psychomotor activity: Normal Eye Contact: Minimal Contact Mood Description: Depressed, Anxious Affect description: congruent with mood, blunted Speech Volume: Soft/Quiet Speech pattern: normal rate, normal rhythm, impoverished Language & Vocabulary: limited Thought Process: Intact, Tangential Thought Content: Yes Suicidal ideation Perceptual Disturbances: No Auditory hallucinations, No Visual hallucinations Attention Span Ability: Capable of Focused Attention Memory Description: Grossly Intact Patient Reliability: Reliable Historian Fund of knowledge: Yes below average Intelligence Estimate: Below Average Judgment: Limited Insight: Partial
[2018-09-13] MEDS: hydrOXYzine pamoate 25 MG CAPSULE PO PRN (20:09)
[2018-09-13] MEDS: traZODone 50 MG TABLET PO PRN (20:09)
[2018-09-14] MEDS: Lisinopril 20 MG TABLET PO SCH (08:31)
--- NOTE | 2018-09-14 16:46 | Psychiatry Progress Note ---
Date of Encounter: 09/14/18 Time of Encounter: 14:00 Subjective Interval history: Patient states he is doing well. He states that he slept well and appetite is good. Patient rates his mood as a 2 and anxiety as a 2 on a scale of 1-10, 10 is worst. Patient denies SI/HI. Patient continues to refuse to go back to his snf and wants to go somewhere else. SW is working on another placement. Patient's pink slip expires today. Patient agrees to sign in as a voluntary patient, so that he can be placed at another snf. Review of Systems Constitutional: Denies: fever, chills, weakness, weight change Eyes: Denies: eye pain, vision change Ears, Nose, Throat: Denies: ear pain, throat pain, dental pain, hearing loss, congestion Respiratory: Denies: cough, dyspnea, wheezes Gastrointestinal: Denies: abdominal pain, nausea, vomiting, diarrhea, constipation Genitourinary male: Denies: urgency, dysuria, frequency, hematuria Musculoskeletal: Denies: joint swelling, joint pain Integumentary: Denies: rash, lesions, change in hair/nails, pruritus Neurological: Denies: headache, weakness, numbness, memory loss Psychiatric: Reports: depression, suicidal ideation, hopelessness Endocrine: Denies: fatigue, heat or cold intolerance, polydipsia, polyuria Hematologic/Lymphatic: Denies: easy bleeding, easy bruising, lymphadenopathy Results - Vital Signs Vital Signs: Temp Pulse Resp BP Pulse Ox 98.6 F 84 18 136/89 96 09/14/18 08:58 09/14/18 08:58 09/14/18 08:58 09/14/18 08:58 09/14/18 08:58 - Impressions ITS Impressions Cervical Spine CT 09/09/18 21:36 IMPRESSION: No acute intracranial abnormality. No acute cervical spine fracture D/ / Satinder Jeter / Satinder Jeter Interpreting Provider: Satinder Jeter Head CT 09/09/18 21:36 IMPRESSION: No acute intracranial abnormality. No acute cervical spine fracture D/ / Satinder Jeter / Satinder Jeter Interpreting Provider: Satinder Jeter Assessment and Plan (1) Suicidal ideation Current visit: Yes Status: Acute Plan: Continue hospitalization, Close observation, Encourage participation in unit milieu Risks, benefits, side effects, alternatives discussed w/pt: Yes Patient agreeable to treatment: Yes (2) Major depressive disorder, recurrent, unspecified Current visit: No Status: Acute Plan: Continue hospitalization, Close observation Risks, benefits, side effects, alternatives discussed w/pt: Yes Patient agreeable to treatment: Yes Qualifiers: Active/Remission status: currently active Major depression episode severity: moderate Qualified Code(s): F33.1 - Major depressive disorder, recurrent, moderate (3) Intoxication Current visit: Yes Status: Acute Risks, benefits, side effects, alternatives discussed w/pt: Yes Patient agreeable to treatment: Yes Consult Discharge Plan - Plan Referrals: NONE,PCP [Primary Care Provider] - Psychiatry Exam - Constitutional Vitals: Temp Pulse Resp BP Pulse Ox 98.6 F 84 18 136/89 96 09/14/18 08:58 09/14/18 08:58 09/14/18 08:58 09/14/18 08:58 09/14/18 08:58 General appearance: age & developmentally appropriate, well-groomed, well- nourished, unkempt - Musculoskeletal Gait: normal Station: relaxed Strength & Tone: normal for patient - Psychiatric Patient Orientation: Yes Person, Yes Time, Yes Place Level of alertness: Alert, Follows commands Behavior: calm, cooperative Psychomotor activity: Normal Eye Contact: Minimal Contact Mood Description: Euthymic/stable Affect description: full range, blunted Speech Volume: Normal Speech pattern: normal rate, normal rhythm, normal tone, spontaneous, coherent, mumbled Language & Vocabulary: consistent with education Thought Process: Intact, Circumstantial Thought Content: No Suicidal ideation, No Homicidal ideation, No Overt delusions Perceptual Disturbances: No Auditory hallucinations, No Visual hallucinations Attention Span Ability: Capable of Focused Attention Memory Description: Grossly Intact Patient Reliability: Reliable Historian Fund of knowledge: Yes below average, Yes aware of current events Intelligence Estimate: Below Average Judgment: Fair Insight: Partial
[2018-09-14] MEDS: hydrOXYzine pamoate 25 MG CAPSULE PO PRN (20:44)
[2018-09-14] MEDS: traZODone 50 MG TABLET PO PRN (20:44)
[2018-09-15] MEDS: Lisinopril 20 MG TABLET PO SCH (09:09)
[2018-09-15 09:23] VITALS: BP 138/84
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
== END 2018-09-15 16:10 | disposition other institution (70) | DRG 885 ==
LOC: EMEROOARM 21:23 → SUATTDRO 09-10 19:42 → 1ANU 09-10 19:42
PROVIDERS: ADMIT Psychiatry & Neurology Forensic Psychiatry; ATTEND Psychiatry & Neurology Psychiatry